=== PATIENT | male | born 1935 | race Caucasian/White ===

== ENCOUNTER 2019-03-14 12:16 | Inpatient (IN) | payer OTHER, MEDICARE ==
[2019-03-14] MEDS ORDERED: POLYETHYLENE GLYCOL 3350 17 GM PKT PO PRN (16:56)
[2019-03-14] MEDS ORDERED: SENNOSIDES 17.6 MG/10 ML UDL PO PRN (16:56)
[2019-03-14] MEDS ORDERED: ACETAMINOPHEN 325 MG TAB PO PRN (16:56)
[2019-03-14] MEDS ORDERED: HALOPERIDOL 2 MG/1 ML PO PRN (17:03)
--- NOTE | 2019-03-14 18:10 | GHP ---
[f rep st] HISTORY AND PHYSICAL DATE OF ADMISSION: 03/14/2019 TIME OF EVALUATION: 1530. REFERRING FACILITY: [facility]. IMPAIRMENT GROUP: 1.2 right body involvement (left brain). DATE OF ONSET: 03/10/2019. 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 ETIOLOGIC DIAGNOSIS: Cerebrovascular accident. DATE OF SURGERY: None. HISTORY OF PRESENT ILLNESS: 80-old male who was admitted to [facility] on 03/10/2019, with right-sided weakness and altered mental status. He was not considered a tPA candidate because he was outside the window for therapy. CT scan of the head as well as CT scan angiography of the head and neck were unremarkable aside from possible chronic appearing pulmonary emboli. He was given ASA in the emergency department. His NIHSS in the ED was noted to be 19. Workup was consistent with acute ischemic lacunar CVA with dense right hemiparesis, aphasia, dysarthria, and gaze deviation. CT pulmonary arteriogram showed pulmonary arteries dilated consistent with pulmonary hypertension. 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 Due to the small nature of the pulmonary embolus and high risk for fall/bleeding due to severe hemiparesis , it was recommended that he avoid full anticoagulation. He was felt to be medically stable and was, therefore, transferred to [facility], rehabilitation unit for comprehensive rehabilitation to include care home, 24 hour medical management, physical, occupational, and speech therapy. STUDIES AND LABS DURING HIS STAY: On admission, he was noted to have an anion gap of 14, BUN 18, calcium 9.4, chloride 103, creatinine 0.92, GFR 77.2, sodium 136, potassium 3.8. MAGING STUDIES: Included CT of the brain, which showed ventricles, sulci, and cisterns symmetric but mildly prominent compatible with age-related atrophy. Nonspecific mild patchy periventricular and subcortical white matter low density, likely reflections of chronic small-vessel disease. No CT evidence of acute infarction. No evidence of acute intracranial hemorrhage. No intracranial mass. CT pulmonary arteriogram showed small segmental pulmonary embolism in the apical left upper lobe pulmonary artery measures approximately 3 mm in diameter. Possible clot near the origin of the apical right upper lobe pulmonary artery. This was read as an addendum to the initial CT arteriogram. Transesophageal echo showed moderate concentric left ventricular hypertrophy with low-normal systolic function. Ejection fraction 50% with no gross regional wall motion abnormalities, grade 2 diastolic dysfunction. Grossly normal estimated pulmonary pressures. Leg duplex venous Doppler studies performed 03/10/2019, showed no evidence of DVT. MRI of the brain without contrast showed a linear area of acute/subacute infarction involving the posterior fibers left posterior internal capsule extending into the periatrial white matter. Age-appropriate cerebral atrophy. Moderate chronic small vessel ischemic changes. PRECAUTIONS: Fall risk. Aspiration precautions. ACTIVE COMORBIDITIES: Dysphagia. PAST MEDICAL HISTORY: Coronary artery disease. Dementia. Hyperlipidemia. Cardiac murmur. Sleep apnea. Thrombocytopenia. PAST SURGICAL HISTORY: Coronary artery bypass grafting. MEDICATIONS: Pre-hospital medications: Amlodipine 5 mg nightly. Cholecalciferol, vitamin D 1 daily. Isosorbide mononitrate 30 mg 24-hour tablet nightly. Admission medications, final med list pending per Pharmacy reconciliation. By medical record review: ASA EC 81 mg. Atorvastatin 40 mg. Plavix 75 mg. Zyprexa 5 mg. Amlodipine 5 mg. Lovenox 40 mg subcu. Tylenol. ALLERGIES: No known drug allergies. PSYCHOSOCIAL HISTORY: He lives in [place] independent living with , whom he cares for. Nonsmoker. Further social history will be obtained once his son arrives to [facility]. FAMILY HISTORY: Noncontributory. REVIEW OF SYSTEMS: Unobtainable by patient history secondary to aphasia. He does, however, answer yes or no. HEENT: Decreased visual nuñez on the right. CARDIAC: Denies chest pain. RESPIRATORY: Denies shortness of breath. GI: Reports lower abdominal pain with palpation. : Reports suprapubic pain with palpation. NEUROLOGICAL: He reports he is unable to move his right arm or leg. The remainder of the 10 system review was negative. PHYSICAL EXAMINATION: VITALS: Blood pressure 126/67, pulse 60, respirations 18 , O2 saturation 93. CONSTITUTION: Pleasant elderly male, lying in bed. Aphasic. Right shoulder sling in place. HEENT: EOMI intact. Pupils equal, round, reactive to light. Decreased tracking across the right lateral visual nuñez. Oral mucosa are moist. Good dentition. CARDIOVASCULAR: Regular rate and rhythm. Did not appreciate a systolic ejection murmur. No lower extremity edema. LUNGS: Upper airway rhonchi noted, secondary to patient unable to clear secretions. ABDOMEN: Soft, nontender, normoactive bowel sounds all 4 quadrants. No rebound, guarding, or tenderness. No masses. : Condom catheter in place. Mild suprapubic tenderness noted. EXTREMITIES: Warm all 4 extremities. No peripheral edema noted. NEUROLOGIC: Expressive aphasia. Cranial nerves 2 through 12 grossly intact. Motor exam reveals a dense right hemiplegia. 4/5 proximal and distal muscle groups left upper and left lower extremities. Patient reports normal sensation in both upper and lower extremities. Normal tone right biceps, internal and external shoulder rotators , normal tone right hip flexors. There is heel cord tightness noted bilaterally. MUSCULOSKELETAL: Right shoulder sling in place. Passive internal and external shoulder rotation with the elbow flexed at side 90 degrees is within normal limits. No palpable right shoulder subluxation. CURRENT LEVEL OF FUNCTION: Per the pre-admission screen: Diet mechanical, soft , setup/SPA feeding. Grooming, minimal assist. Bathing not tested. Lower body dressing, total assistance. Toileting not testing. Bladder not tested. Bowel not tested. Bed mobility, moderate assist to roll, max assist x2 supine. Toilet transfers, moderate assist x2. Sit to stand, bed to chair, max assist x2. Sera steady balance, sitting balance, min assist x2, endurance fair. Gait , wheelchair, stairs not tested. Communication expressive aphasia. Has receptive aphasia, but some perseverance. Cognition impaired. Attention, STM deficits. Safety precautions, fall risk, impaired right upper extremity sensation. Upper extremity strength/range of motion. Right upper and right lower extremity hemiparesis. On today's exam, there is no significant change from preadmission screen. IMPRESSION: This is an 80-year-old male who now presents with dense right hemiparesis secondary to a recent left cerebrovascular accident. Unfortunately , he presented to the emergency department outside the window of tPA, and therefore, this was not administered. Workup prior to admission to our facility indicated that he had chronic pulmonary embolus; however, did not have acute lower extremity deep venous thrombosis. He was placed on deep venous thrombosis prophylaxis, including Plavix, enteric-coated aspirin, and Lovenox 40. Due to his age and level of debility, he is considered high risk for deep venous thrombosis. He has expressive aphasia and will currently be placed on a level 2 diet. Swallowing precautions. Upon admission to the rehab unit, he will need integrated rehabilitation, which will include physical and occupational therapy, as well as speech and language pathology. He will have a swallowing evaluation over the weekend. PLAN: 1. Left CVA with right dense hemiplegia: Consult Physical and Occupational Therapy for lower extremity strengthening, gait evaluation, and upper extremity strengthening, respectively. Occupational therapy for ADL training with assistive devices. Integrated PT and OT for bed mobility and gait training as deemed necessary. Occupational therapy to perform formal visual field testing. Speech and Language Pathology consult. Patient will be placed on a level 2 dysphagia diet. 2. Coronary artery disease: Review of medical records indicates permissive hypertension. Patient now on enteric-coated ASA as well as Plavix. 3. Hypertension: Current antihypertensives include amlodipine 5 mg. Review of discharge medical records indicates that Norvasc was being held for permissive hypertension. Patient also has a history of having bradycardia, as low as 45, possibly felt secondary to Zyprexa and Haldol. 4. Hyperlipidemia: Continue atorvastatin. Will place on a low-fat diet. 5. Dementia: Chronic underlying dementia. Will discuss with family if patient is currently at baseline regarding this. Patient was noted to have sundowning and delirium overnight and was started on Zyprexa and Haldol. Will place order for these medications to be given on a p.r.n. basis. 6. Pulmonary embolism: This was felt to be chronic. Lower extremity duplex ultrasound studies were negative for DVTs. Will continue enteric-coated ASA, Plavix, and Lovenox 40. 7. Obstructive sleep apnea: Patient to use CPAP at night. Will monitor O2 saturations at night. /[id number]/MODL MTDD
[2019-03-14] MEDS: ATORVASTATIN CALCIUM 40 MG TAB PO SCH (18:48)
[2019-03-14] MEDS: OLANZapine DISINTEGR 5 MG TAB PO SCH (20:43)
[2019-03-15 05:44] LABS: PLATELET COUNT 163 10^3/uL (150-400)
[2019-03-15] MEDS: ENOXAPARIN 40 MG/0.4 ML SYR SC SCH (08:14)
--- NOTE | 2019-03-15 09:17 | PDOREHIP ---
Admission [facility] - Admission - 3 Day Assessment Period Admission Date/Day 1: 03/14/19 Day 2: 03/15/19 Day 3: 03/16/19 - Active Diagnoses Comorbidities and Co-existing Conditions at Admission: 08739. None of the Above - Skin Conditions # Stage 1 Pressure Ulcers-Admission: 0 # Stage 2 Pressure Ulcers-Admission: 0 # Stage 3 Pressure Ulcers-Admission: 0 # Stage 4 Pressure Ulcers-Admission: 0 # Unstageable Pressure Ulcers (Non-remove Dress)-Admission: 0 # Unstageable Pressure Ulcers (Slough/Eschar)-Admission: 0
--- NOTE | 2019-03-15 09:22 | SOAPPROG ---
SOAP Progress Note Assessment/Plan: Assessment: PLAN: 1. Left CVA with right dense hemiplegia: Consult Physical and Occupational Therapy for lower extremity strengthening, gait evaluation, and upper extremity strengthening, respectively. Occupational therapy for ADL training with assistive devices. Integrated PT and OT for bed mobility and gait training as deemed necessary. Occupational therapy to perform formal visual field testing. Speech and Language Pathology consult. Patient will be placed on a level 2 dysphagia diet. 2. Coronary artery disease: Review of medical records indicates permissive hypertension. Patient now on enteric-coated ASA as well as Plavix. 3. Hypertension: Blood pressure 03/15 132/78. Current antihypertensives include amlodipine 5 mg. Review of discharge medical records indicates that Norvasc was being held for permissive hypertension. Patient also has a history of having bradycardia, as low as 45, possibly felt secondary to Zyprexa and Haldol which he did not receive last night. 4. Hyperlipidemia: Continue atorvastatin. Will place on a low-fat diet. 5. Dementia: Chronic underlying dementia. Will discuss with family if patient is currently at baseline regarding this. Patient was noted to have sundowning and delirium overnight and was started on Zyprexa and Haldol. Will place order for these medications to be given on a p.r.n. basis. 6. Pulmonary embolism: This was felt to be chronic. Lower extremity duplex ultrasound studies were negative for DVTs. Will continue enteric-coated ASA, Plavix, and Lovenox 40. 7. Obstructive sleep apnea: Patient to use CPAP at night. Will monitor O2 saturations at night. 8. Labs: UA from admission was negative. Hemoglobin and hematocrit 15.1/44.3. White blood count 6.63. Sodium 137, potassium 4.0 also from admission. 9. Tightness of hand intrinsics. Will ask Occupational therapy to perform intrinsic stretching. 10. Heel cord tightness-will ask Occupational therapy to perform daily heel cord stretching. 03/15/19 09:19 Subjective: No complaints per patient. He is more talkative today. No problems reported by nursing. He slept well. He did not require Haldol or Zyprexa. Objective: Vital Signs Temp Pulse Resp BP Pulse Ox 36.7 C 62 18 132/78 H 90 L 03/14/19 20:42 03/15/19 04:49 03/14/19 20:42 03/15/19 04:49 03/15/19 04:49 Laboratory Results 03/15/19 05:10 03/15/19 05:10 03/14/19 03/15/19 03/16/19 05:59 05:59 05:59 Output Total 350 Balance -350 Physical Exam - Physical Exam General Appearance: WD/WN, alert, no apparent distress EENT: PERRL/EOMI, other (Halitosis) Respiratory: lungs clear, normal breath sounds Abdomen: normal bowel sounds, non-tender, soft Skin: normal color, warm/dry, No decubitus Extremities: other (Right shoulder sling in place), No swelling, No Mike's sign Neuro/Psych: alert, motor weakness (Dense right hemiplegia. Increased tone of the right hand intrinsics. Heel cord tightness noted bilaterally.), speech abnormalities ICD10 Worksheet Patient Problems: Problems Problem Status Onset CVA (cerebral vascular accident) Acute - ICD10 Problem Qualifiers (1) CVA (cerebral vascular accident) Qualifiers: CVA mechanism: occlusion Laterality of affected vessel: left
[2019-03-15] MEDS: CLOPIDOGREL BISULFATE 75 MG TAB PO SCH (10:04)
[2019-03-15] MEDS ORDERED: MAGNESIUM HYDROXIDE 30 ML UDCUP PO PRN (14:18)
[2019-03-15] MEDS: ATORVASTATIN CALCIUM 40 MG TAB PO SCH (17:33)
[2019-03-15] MEDS: OLANZapine DISINTEGR 5 MG TAB PO SCH (20:25)
[2019-03-16] MEDS: ENOXAPARIN 40 MG/0.4 ML SYR SC SCH (07:34)
[2019-03-16] MEDS: CLOPIDOGREL BISULFATE 75 MG TAB PO SCH (10:00)
--- NOTE | 2019-03-16 10:05 | SOAPPROG ---
SOAP Progress Note Assessment/Plan: Assessment: PLAN: 1. Left CVA with right dense hemiplegia: NO CHANGE IN RIGHT UPPER RIGHT LOWER EXTREMITY MOTOR EXAM. PATIENT LESS APHASIC ON 03/16 AND 03/15 COMPARED TO INITIAL EXAM ON H&P. FOLLOWS SOME COMMANDS. Consult Physical and Occupational Therapy for lower extremity strengthening, gait evaluation, and upper extremity strengthening, respectively. Occupational therapy for ADL training with assistive devices. Integrated PT and OT for bed mobility and gait training as deemed necessary. Occupational therapy to perform formal visual field testing. Speech and Language Pathology consult. Patient will be placed on a level 2 dysphagia diet. 2. Coronary artery disease: Patient now on enteric-coated ASA as well as Plavix. 3. Hypertension: Blood pressure 03/16 132/67. PULSE 63 HAD REGULAR Review of medical records indicates permissive hypertension. Current antihypertensives include amlodipine 5 mg. Review of discharge medical records indicates that Norvasc was being held for permissive hypertension. Patient also has a history of having bradycardia, as low as 45, possibly felt secondary to Zyprexa and Haldol. 4. Hyperlipidemia: Continue atorvastatin. Will place on a low-fat diet. 5. Dementia: Chronic underlying dementia. Will discuss with family if patient is currently at baseline regarding this. Patient was noted to have sundowning and delirium overnight and was started on Zyprexa AT BEDTIME AND HALDOL P.R.N.. NURSING REPORTS PATIENT SEEMS TO SEDATED ON ZYPREXA AND THEREFORE WILL CHANGE THIS TO P.R.N.. 6. Pulmonary embolism: This was felt to be chronic. Lower extremity duplex ultrasound studies were negative for DVTs. Will continue enteric-coated ASA, Plavix, and Lovenox 40. 7. Obstructive sleep apnea: Patient to use CPAP at night. Will monitor O2 saturations at night. 8. Labs: UA from admission was negative. Hemoglobin and hematocrit 15.1/44.3. White blood count 6.63. Sodium 137, potassium 4.0 also from admission. 9. Tightness of hand intrinsics. Will ask Occupational therapy to perform intrinsic stretching. 10. Heel cord tightness-will ask Occupational therapy to perform daily heel cord stretching. 03/16/19 10:06 Subjective: NO COMPLAINTS PER PATIENT. NURSING REPORTS STRAIGHT CATHETERIZATION X2 YESTERDAY WITH VOLUMES OF 825. NURSING ALSO REPORTS PATIENT IS QUITE SEDATED AT NIGHT AND SLEPT THROUGH STRAIGHT CATHETERIZATION. THEREFORE REQUESTING ZYPREXA TO BE CHANGED TO P.R.N. Objective: Vital Signs Temp Pulse Resp BP Pulse Ox 36.6 C 63 16 132/67 H 92 03/16/19 05:45 03/16/19 05:45 03/16/19 00:07 03/16/19 05:45 03/16/19 05:45 Laboratory Results 03/15/19 05:10 03/15/19 05:10 03/15/19 03/16/19 03/17/19 05:59 05:59 05:59 Intake Total 940 60 Output Total 2049 Balance -1110 60 Physical Exam - Physical Exam General Appearance: WD/WN, alert, no apparent distress, other (MORE TALKATIVE TODAY. ANSWERS QUESTIONS APPROPRIATELY. FOLLOWS COMMANDS.) Respiratory: lungs clear, normal breath sounds Cardiac/Chest: No edema, No JVD Abdomen: non-tender, soft, other (NO SUPRAPUBIC TENDERNESS) Skin: normal color, warm/dry Neuro/Psych: alert, motor weakness, sensory deficit (DENSE RIGHT HEMIPLEGIA. NO RIGHT UPPER EXTREMITY OR RIGHT LOWER EXTREMITY MOTOR RETURN ON TODAY'S EXAM COMPARED TO ADMISSION EXAM FROM 03/14) ICD10 Worksheet Patient Problems: Problems Problem Status Onset CVA (cerebral vascular accident) Acute - ICD10 Problem Qualifiers (1) CVA (cerebral vascular accident) Qualifiers: CVA mechanism: occlusion Laterality of affected vessel: left
[2019-03-16] MEDS ORDERED: TAMSULOSIN HCL 0.4 MG CAP PO SCH (10:15)
[2019-03-16] MEDS ORDERED: IOPAMIDOL (ISOVUE 370) 100 ML BTL IV ONE (10:35)
--- NOTE | 2019-03-16 11:06 | SOAPPROG ---
SOAP Progress Note Assessment/Plan: Assessment: PLAN: 1. Left CVA with right dense hemiplegia: NO CHANGE IN RIGHT UPPER RIGHT LOWER EXTREMITY MOTOR EXAM. PATIENT LESS APHASIC ON 03/16 AND 03/15 COMPARED TO INITIAL EXAM ON H&P. FOLLOWS SOME COMMANDS. Consult Physical and Occupational Therapy for lower extremity strengthening, gait evaluation, and upper extremity strengthening, respectively. Occupational therapy for ADL training with assistive devices. Integrated PT and OT for bed mobility and gait training as deemed necessary. Occupational therapy to perform formal visual field testing. Speech and Language Pathology consult. Patient will be placed on a level 2 dysphagia diet. 2. Coronary artery disease: Patient now on enteric-coated ASA as well as Plavix. 3. Hypertension: Blood pressure 03/16 132/67. PULSE 63 HAD REGULAR Review of medical records indicates permissive hypertension. Current antihypertensives include amlodipine 5 mg. Review of discharge medical records indicates that Norvasc was being held for permissive hypertension. Patient also has a history of having bradycardia, as low as 45, possibly felt secondary to Zyprexa and Haldol. 4. Hyperlipidemia: Continue atorvastatin. Will place on a low-fat diet. 5. Dementia: Chronic underlying dementia. Will discuss with family if patient is currently at baseline regarding this. Patient was noted to have sundowning and delirium overnight and was started on Zyprexa AT BEDTIME AND HALDOL P.R.N.. NURSING REPORTS PATIENT SEEMS TO SEDATED ON ZYPREXA AND THEREFORE WILL CHANGE THIS TO P.R.N.. 6. Pulmonary embolism: This was felt to be chronic. Lower extremity duplex ultrasound studies were negative for DVTs. Will continue enteric-coated ASA, Plavix, and Lovenox 40. 7. Obstructive sleep apnea: Patient to use CPAP at night. Will monitor O2 saturations at night. 8. Labs: UA from admission was negative. Hemoglobin and hematocrit 15.1/44.3. White blood count 6.63. Sodium 137, potassium 4.0 also from admission. 9. Tightness of hand intrinsics. Will ask Occupational therapy to perform intrinsic stretching. 10. Heel cord tightness-will ask Occupational therapy to perform daily heel cord stretching. 03/16/19 10:06 Subjective: Addendum to earlier progress note. Called by nursing staff at 10:35 a.m. Regarding change of neurological status of patient while he was in speech therapy. Apparently during speech therapy session patient slumped over in wheelchair and was noted to be initially unresponsive and then noted to have increased aphasia, not responding to verbal commands. Nursing reports blood pressure noted to be 60/30. Stroke alert was called and patient immediately assessed by stroke alert team. Blood pressure normalized and patient became more responsive. He was able to recite his name and follow verbal commands including raising left arm and left leg. Able to touch nose with left hand. By comparison to this morning's exam there is no obvious change in left upper or left lower extremity motor exam. Patient does have dense right hemiplegia secondary to previous cerebrovascular accident for which he was admitted to the rehab unit. Per stroke team protocol patient was sent for emergent head CT to rule out infarction verses new ischemic CVA followed by further assessment in the emergency department where will be determined if patient can return to rehab floor needs to be transferred to medical floor. This was discussed with the stroke alert team as well as the rehab nursing staff Objective: Vital Signs Temp Pulse Resp BP Pulse Ox 36.4 C 63 16 61/35 L 95 03/16/19 10:39 03/16/19 10:27 03/16/19 00:07 03/16/19 10:27 03/16/19 10:27 Laboratory Results 03/15/19 05:10 03/15/19 05:10 03/15/19 03/16/19 03/17/19 05:59 05:59 05:59 Intake Total 940 60 Output Total 2049 Balance -1110 60 ICD10 Worksheet Patient Problems: Problems Problem Status Onset CVA (cerebral vascular accident) Acute - ICD10 Problem Qualifiers (1) CVA (cerebral vascular accident) Qualifiers: CVA mechanism: occlusion Laterality of affected vessel: left
[2019-03-16 11:07] LABS: PLATELET COUNT 205 10^3/uL (150-400)
[2019-03-16 11:26] LABS: INR 1.07 (0.83-1.16); PROTIME(PATIENT) 13.5 SEC (12.0-15.0)
--- NOTE | 2019-03-16 11:36 | PDGENHP ---
History and Physical History and Physical: Critical care note > 45 mins critical care time As cultured bedside for a stroke alert in house on this patient who is on the rehab unit after being transferred here from a [facility] with a recent stroke. His stroke involved right-sided dense kenya paresis and expressive aphasia. This morning he was apparently sitting in a chair working with speech therapist when he suddenly became unresponsive and was found to have a blood pressure of 62/40. As I arrived at the room he was being placed back into his bed by the ceiling lift device. As he was placed back into the bed he was still poorly responsive but over the next minute or 2 became much more responsive and was speaking to us answering questions with mumbled speech but following commands and moving his left limbs. When we recheck his blood pressure in the bed it was back in normal range and he has a strong pulse in both feet which is at normal rate and regular. Notably there have been no fevers identified I am unable talking to the nursing staff and therapist to get a real clear picture on how strong his pulse was or how strong it felt during the episode. There is no time when he stops breathing at all. He did not have anything that looks like seizure. The episode was quite sudden in onset with no symptoms or examination changes in the time directly before the syncope. He had been seen previously by the rehabilitation unit rounding physician who said that his neuro examination was unchanged from yesterday. Blood pressures have been in good shape through the night and morning. The stroke occurred several days ago and he did not receive tPA due to timing. He came here receiving Plavix and low-dose Lovenox. He does not have any known atrial fibrillation. He does have a history of coronary disease and a bypass surgery. On review his medications I notice that he has orders for Seroquel 5 mg at bedtime and I am told that that was a new medications started at the [facility] during the initial stroke asked the sewed because of sundowning and agitation. He is not on antihypertensives or heart rate lowering medications. He is not diabetic and is not taking any hypoglycemic medicines. I do not know if he has any history of arrhythmia or syncope in the past at the moment. He is not on narcotics. On my initial examination as he was being transferred in the left his head was slumped to the right eyes closed any appeared unresponsive with pale skin. Subsequently as he got into the bed he was awake, skin warm and dry, following commands appropriately, still with right kenya paresis and mumbled speech but on my bili to understand his words. He does not appear to be having any type of respiratory difficulty at all in his lungs are clear. His heart is regular with quiet heart tones and no audible murmur. Limbs are without edema and are warm. Skin turgor is notably decreased. Abdomen soft nondistended nontender with bowel sounds. No audible bruit at the neck. Strength is normal in the left limbs and facial symmetry okay. Pupils are small and symmetric. I did not see any signs of bleeding or bruising. I examined the patient together in the room with Dr. Jasson Su of Neurology and Dr. Lino Pan. An I-STAT is done in the room in my presence and the main finding there is that the hemoglobin and hematocrit are remarkably elevated raising a question of possible dehydration. After observing him in the room for approximately 15 min and ensuring hemodynamic stability we transferred him to the CT scanner where we see a recent appearing ischemic stroke in the left basal ganglia, typical location for his presenting stroke symptoms. There is no hemorrhage or other acute abnormalities. I reviewed these images in detail with Dr. Hendrickson of radiology. At this time he is transferred to the ER as we are doing the CT scan and further assessment in the "outpatient" setting, and by my assessment he has made to the ER without any decompensation, still awake and responsive. I reviewed the patient's case in detail with Dr. Wayne Todd of the ER he will be further the assessing the patient at this time. On review of existing laboratory studies here notably the patient does have an elevated BUN with normal creatinine and electrolytes; the BUN is higher today than yesterday. Also as he arrived here his hemoglobin was at 15 on serum chemistry yesterday, up to 17 on chemistry this morning and 18 subsequently on the point of care testing in the patient's room. An INR was normal. ASSESSMENT: * Acute syncope resolved, involved hypotension, I am unable to ascertain what his cardiac rhythm or rate was with certainty during the event * Recent ischemic stroke with right kenya paresis and aphasia and typical CT findings is unchanged from his earlier baseline, no hemorrhage * I strongly suspect dehydration based on examination and blood test findings, and this makes sense given his recent stroke and dysphagia 2 diet * Recent institution of nightly Seroquel for sundowning with agitation started at the prior hospital, has received does over the last 4 nights (p.r.n. Haldol had also been ordered but he has not received any) * History of coronary bypass surgery, and history of murmur * History of dementia * Hyperlipidemia * Obstructive sleep apnea * History thrombocytopenia Overall my suspicion is that he had syncope probably triggered by combination of dehydration and new institution of Seroquel therapy. I think this is more of a hemodynamic episode. Additionally as he has sleep apnea he could potentially have pulmonary hypertension, which would make him less tolerant of these hemodynamic changes. However he does also have a history of heart disease and I would worry about the possibility of cardiac the affects of Seroquel. We do not have an EKG here yet but that is pending in the ER and I want to look at his QT syndrome. Certainly feel like it is reasonable to monitor her him on cardiac EKG monitoring going forward. I will discuss further with Dr. Salas after ER assessment.
[2019-03-16 11:55] VITALS: BP 121/66
[2019-03-16] MEDS ORDERED: OLANZapine DISINTEGR 5 MG TAB PO SCH (21:00)
== END 2019-03-16 12:05 | disposition short-term general hospital (02) | DRG 57 ==
LOC: F3E 15:00
PROVIDERS: ADMIT Internal Medicine Hospice and Palliative Medicine; ATTEND Internal Medicine Hospice and Palliative Medicine
DX: I69.351 Hemiplegia and hemiparesis following cerebral infarction affecting right dominant side (principal); I69.320 Aphasia following cerebral infarction; I69.322 Dysarthria following cerebral infarction; I27.82 Chronic pulmonary embolism; R55 Syncope and collapse; I27.20 Pulmonary hypertension, unspecified; F03.90 Unspecified dementia, unspecified severity, without behavioral disturbance, psychotic disturbance, mood disturbance, and anxiety; E78.5 Hyperlipidemia, unspecified; G47.33 Obstructive sleep apnea (adult) (pediatric); R01.1 Cardiac murmur, unspecified; I25.10 Atherosclerotic heart disease of native coronary artery without angina pectoris; I10 Essential (primary) hypertension; Z95.1 Presence of aortocoronary bypass graft
CPT/HCPCS: 82435-PO; 82565-PO; 82947-PO; 84132-PO; 84295-PO; 84520-PO; 85014-ER; 92507-GN; 92523-GN; 92610-GN; 97162-GP; 97167-GO; 97530-GP; 97535-GO; J1650; Q9967

== ENCOUNTER 2019-03-16 10:59 | Inpatient (IN) | payer OTHER, MEDICARE ==
[2019-03-16] MEDS ORDERED: NS 500 ML IV ONE ×2 (11:02→14:13)
--- NOTE | 2019-03-16 11:02 | EDPHY ---
H & P Time Seen by Provider: 03/16/19 11:01 HPI/ROS: CHIEF COMPLAINT: Syncope HISTORY OF PRESENT ILLNESS: Recent dense CVA with right kenya paresis was called as a stroke alert on the floor for brief episode of unconsciousness and low blood pressure at 60 systolic. He had been admitted 2 days ago from [facility] following a stroke. Apparently pulses unable to be definitively determined. Head CT which per report from Dr. Thomson shows known stroke only, transferred here for further evaluation. On arrival the patient does not know what happened. He says he remembers sitting up in the wheelchair with the therapist and then the next thing he remembers he was awake. He did not remember passing out. He did not have a prodrome. He denies having lightheadedness or dizziness or chills or chest pain or shortness of breath. REVIEW OF SYSTEMS: Eye: no change in vision ENT: no sore throat Cardiac: HPI Pulmonary: no cough or SOB Abdomen: no vomiting, diarrhea, abdominal pain Musculoskeletal: no back pain Skin: no rash Neuro: no headache, right kenya paresis Constitutional: no fever : no urinary symptoms A comprehensive 10 point review of systems is otherwise negative aside from elements mentioned in the history of present illness. PAST MEDICAL HISTORY: Rehab admission H&P dated 03/14/19 personally reviewed, includes coronary disease and hyperlipidemia and coronary artery bypass grafting , pulmonary embolism diagnosed in previous hospitalization which was felt to be chronic. Social history: Currently on rehab floor General Appearance: Alert and conversant, cooperative. Eyes: No scleral icterus. ENT, Mouth: Dry mucous membranes. Respiratory: Normal respiratory effort, breath sounds equal, lungs are clear to auscultation. Cardiovascular: Regular rate and rhythm. Gastrointestinal: Abdomen is soft and non tender. Neurological: Alert, right kenya paresis. Speech is slurred. Does answer questions, can name eyeglasses and a pen. Skin: Warm and dry, no rashes. Musculoskeletal: Some bilateral peripheral edema. Psychiatric: Not agitated. Emergency Department course/MDM: Labs from today at 10:45 a.m. Include potassium 4.2, BUN 30, creatinine 1.2, glucose 104, hemoglobin 18, hematocrit 51. Patient specifically denies chest pain or shortness of breath and is not hypoxic with 97% saturation on room air and heart rate of 64. Syncope without prodrome is concerning for ventricular malignant dysrhythmia. Neurologic exam appears to be at his baseline after a stroke, I think his event today was much more likely to be syncope and not a new stroke. Troponin pending, hospitalist consult for overnight telemetry monitoring and then consideration for admission to rehab again. IV fluids given with dry mucous membranes and elevated hematocrit suggesting possibility of dehydration. Smoking Status: Never smoked Constitutional: Initial Vital Signs Temperature (C) 36.3 C 03/16/19 11:12 Heart Rate 63 03/16/19 11:12 Respiratory Rate 16 03/16/19 11:12 Blood Pressure 147/77 H 03/16/19 11:12 O2 Sat (%) 97 03/16/19 11:12 Allergies/Adverse Reactions: No Known Allergies Allergy (Unverified 03/14/19 15:49) Home Medications: Medication Instructions Recorded Acetaminophen [Tylenol 325mg (*)] 650 mg PO Q4 PRN 03/14/19 Atorvastatin Calcium [Lipitor 40 40 mg PO DAILY@1800 03/14/19 mg (*)] Clopidogrel Bisulfate [Clopidogrel] 75 mg PO DAILY 03/14/19 Enoxaparin [Lovenox 40 MG (*)] 40 mg SQ DAILY@1600 03/14/19 OLANZapine [Olanzapine Odt] 5 mg PO HS 03/14/19 Haloperidol Lactate [HALOPERIDOL 0.5 mg PO Q6 PRN 03/16/19 LACTATE] Magnesium Hydroxide [Milk of 30 ml PO DAILY PRN 03/16/19 Magnesia] Polyethylene Glycol 3350 [Miralax 17 gm PO DAILY PRN 03/16/19 17 gm (*)] Sennosides [Senna] 8.8 mg PO BID PRN 03/16/19 Tamsulosin HCl [Flomax 0.4 MG (*)] 0.4 mg PO DAILY 03/16/19 Medical Decision Making - Diagnostics EKG Interpretation: 12-lead EKG interpreted by me; official reading is in computer system. My interpretation is sinus rhythm no with right bundle branch block and left anterior fascicular block Differential Diagnosis: Differential diagnosis considered for syncope including but not limited to vasovagal syncope, arrhythmia, dehydration, and blood loss. Consult/Admit Bed Type: [facility] 1132am for Jennifer Thomson to consult cards 1201 - Data Points Medications Given: Discontinued Medications Sodium Chloride (Ns) 500 mls @ 1,000 mls/hr IV EDNOW ONE PRN Reason: Protocol Stop: 03/16/19 11:31 Last Admin: 03/16/19 11:14 Dose: 500 mls Departure - Departure Dis[facility] Clinical Impression: Syncope Qualifiers: Syncope type: unspecified Qualified Code(s): R55 - Syncope and collapse Condition: Good
--- NOTE | 2019-03-16 11:23 | CPEKG ---
Test Reason : OPEN Blood Pressure : / mmHG Vent. Rate : 064 BPM Atrial Rate : 064 BPM P-R Int : 193 ms QRS Dur : 126 ms QT Int : 470 ms P-R-T Axes : 048 -70 095 degrees QTc Int : 485 ms Normal sinus rhythm RBBB and LAFB Probable left ventricular hypertrophy Nonspecific T abnormalities, lateral leads Confirmed by Wayne Salas ([id number]) on 03/16/2019 11:22:50 AM Referred By: Wayne Salas Confirmed By:Wayne Salas
[2019-03-16] MEDS ORDERED: ACETAMINOPHEN 325 MG TAB PO PRN (13:21)
[2019-03-16] MEDS ORDERED: ONDANSETRON 4 MG/2 ML VIAL IVP PRN (13:21)
--- NOTE | 2019-03-16 13:23 | GCON ---
[f rep st] CONSULTATION NEUROLOGIC CONSULTATION REFERRING PHYSICIAN: Lino Pan MD I saw this patient through a Stroke Alert system. HISTORY: This patient is an 83-year-old gentleman who is on the rehab service. He has a history of experiencing recent stroke where he did not get tPA at an outside facility. He came to the hospital on Plavix and low-dose Lovenox. No known rhythm disturbances. History of coronary disease and bypas s. He was at [facility], and apparently had some agitation leading to use of Seroquel. He was sitting t his morning doing therapy in the chair when he became unresponsive and had a profound drop in blood p ressure to 62/40. He gradually started to improve over the next several minutes, and started to spea k and answer questions and follow commands with dysarthria, and was moving his left side, and seemed to be rapidly back to his baseline. There was not specific documentation of an arrest of respiration s or his cardiac status with the low blood pressure. This is a significant change from his baseline. Stroke Alert was followed, with head CT showing the left posterior limb of the internal capsule infar ct and very clean blood vessels on CT angiogram of the head and neck. He has subsequently been admitted for monitoring prior to anticipated return to rehab, but it is not suspected that he had a new stroke. IMPRESSION: Overall, I agree with Dr. Thomson that this is probably a syncopal event rather than a tr ansient ischemia attack or new stroke. He did have recent stroke probably on a small-vessel basis ba sed on the fact that the large vessels look quite impressively clear. There is reported history of d ementia as well, and medical problems include apnea, thrombocytopenia, hyperlipidemia. His NIH Stroke Scale is 11. Total unit time of 75 minutes. Neurology will not follow up unless further questions arise, but we a re available through repeat consultation or any questions. Tomorrow, Dr. Hanna will be assuming Neuro logy service. /[id number]/MODL
--- NOTE | 2019-03-16 13:42 | PDGENHP ---
History and Physical History and Physical: CC: HISTORY: I was originally called to bedside for a stroke alert in house on this patient who was on the rehab unit after being transferred here from a [facility] with a recent stroke. His stroke involved right-sided dense kenya paresis and expressive aphasia. This morning he was apparently sitting in a chair working with speech therapist when he suddenly became unresponsive and was found to have a blood pressure of 62/40. As I arrived at the room he was being placed back into his bed by the ceiling lift device. As he was placed back into the bed he was still poorly responsive but over the next minute or 2 became much more responsive and was speaking to us answering questions with mumbled speech but following commands and moving his left limbs. When we recheck his blood pressure in the bed it was back in normal range and he has a strong pulse in both feet which is at normal rate and regular. Notably there have been no fevers identified I am unable talking to the nursing staff and therapist to get a real clear picture on how strong his pulse was or how strong it felt during the episode. There is no time when he stops breathing at all. He did not have anything that looks like seizure. The episode was quite sudden in onset with no symptoms or examination changes in the time directly before the syncope. He had been seen previously by the rehabilitation unit rounding physician who said that his neuro examination was unchanged from yesterday. Blood pressures have been in good shape through the night and morning. The stroke occurred several days ago and he did not receive tPA due to timing. He came here receiving Plavix and low-dose Lovenox. He does not have any known atrial fibrillation. He does have a history of coronary disease and a bypass surgery. On review his medications I notice that he has orders for Seroquel 5 mg at bedtime and I am told that that was a new medications started at the [facility] during the initial stroke asked the sewed because of sundowning and agitation. He is not on antihypertensives or heart rate lowering medications. He is not diabetic and is not taking any hypoglycemic medicines. I do not know if he has any history of arrhythmia or syncope in the past at the moment. He is not on narcotics. On my initial examination as he was being transferred in the left his head was slumped to the right eyes closed any appeared unresponsive with pale skin. Subsequently as he got into the bed he was awake, skin warm and dry, following commands appropriately, still with right kenya paresis and mumbled speech but on my bili to understand his words. He does not appear to be having any type of respiratory difficulty at all in his lungs are clear. His heart is regular with quiet heart tones and no audible murmur. Limbs are without edema and are warm. Skin turgor is notably decreased. Abdomen soft nondistended nontender with bowel sounds. No audible bruit at the neck. Strength is normal in the left limbs and facial symmetry okay. Pupils are small and symmetric. I did not see any signs of bleeding or bruising. I examined the patient together in the room with Dr. Jasson Su of Neurology and Dr. Lino Pan. An I-STAT is done in the room in my presence and the main finding there is that the hemoglobin and hematocrit are remarkably elevated raising a question of possible dehydration. After observing him in the room for approximately 15 min and ensuring hemodynamic stability we transferred him to the CT scanner where we see a recent appearing ischemic stroke in the left basal ganglia, typical location for his presenting stroke symptoms. There is no hemorrhage or other acute abnormalities. I reviewed these images in detail with Dr. Hendrickson of radiology. The patient was transferred from rehab unit to the CT scanner where CT showed evidence of an ischemic stroke recent in the left basal ganglia but no bleed or other acute changes. CT angio was unrevealing the patient was then transferred to the emergency room for further assessment and is now admitted from the ER to the PCU. 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 MEDICATIONS: The patients list has been reconciled by our clinical pharmacist in the EMR. I have reviewed the list and ordered appropriate medicines. PHYSICAL EXAMINATION: Vital Signs: I refer the reader to history above for acute changes in vitals earlier today. More recently since transfer to PCU he has become tachypneic and has a low oxygen saturation. Blood pressure and pulse remains stable Harness Fitter: Sinus rhythm Examination: General: alert, oriented, good mentation, relaxed Skin: Poor turgor, warm, dry, HEENT: normal Neck: no mass or jvd Resps: relaxed Lungs: clear breath sounds Heart: regular, no murmur Abdomen: soft, nondistended, nontender, +BS, no mass Upper Extremities: normal Lower Extremities: no edema, warm No Bleeding or bruising Neurologic: Speech is slurred and mumbled but he is able to articulate well enough to understand, normal wholesale representative, paralyzed in the right arm and leg IV site: looks normal LABORATORY DATA: Initial hemoglobin here yesterday 15 had increased to 17 by this morning and then set 18 by point of care test at the time of his acute event CBC otherwise normal midline Normal INR BUN has increased to low 30s with stable creatinine and electrolytes, minimal elevation of sugars Troponin indeterminate at 0.06 RADIOLOGY STUDIES: I reviewed head CT images in detail today and there is evidence of his recent ischemic stroke left basal ganglia but no bleed or other acute changes at this time 12 LEAD EKG: I reviewed 12 lead tracing from ER, Sinus rhythm. Severe baseline artifact renders interpretation of some aspects of this EKG difficult. There is right bundle branch block and left anterior fascicular block. There is no definite ischemia or injury. ASSESSMENT: * Acute syncope resolved, involved hypotension, I am unable to ascertain what his cardiac rhythm or rate was with certainty during the event * Recent ischemic stroke with right kenya paresis and aphasia and typical CT findings is unchanged from his earlier baseline, no hemorrhage * I strongly suspect dehydration based on examination and blood test findings, and this makes sense given his recent stroke and dysphagia 2 diet * Recent institution of nightly Seroquel for with agitation started at the prior hospital, has received does over the last 4 nights (p.r.n. Haldol had also been ordered but he has not received any) * Indeterminate troponin today * History of coronary bypass surgery, and history of murmur * History of dementia * Hyperlipidemia * Obstructive sleep apnea * History thrombocytopenia Overall my suspicion is that he had syncope probably triggered by combination of dehydration and new institution of Seroquel therapy. I think this is more of a hemodynamic episode. Additionally as he has sleep apnea he could potentially have pulmonary hypertension, which would make him less tolerant of these hemodynamic changes. However he does also have a history of heart disease and I would worry about the possibility of cardiac the affects of Seroquel. Also he has an indeterminate troponin though no definite ischemic change on 1st EKG and no angina symptoms. The troponin could be due to the hypotension he had during his spell or could indicate an acute heart syndrome. Another possibility to consider would be pulmonary embolism. PLANS: * Observation on potline monitor unit * IV hydration * CT angio of chest after some IV hydration in order to assess for PE while protecting kidneys as he has just had a CT angio head neck * Repeat troponins and EKGs today * Discontinue neuroleptics * Follow closely for any arrhythmia or signs of ischemia or heart failure * Check orthostatic vitals in a.m. * Continue routine post stroke care including anti-platelet therapy, DVT prophylaxis, blood pressure management, statin, OT PT and ASSOCIATE PROFESSOR OF EDUCATION * Continue dysphagia 2 diet at present * A do not resuscitate order had been in defect while on the rehabilitation unit and will continue that here for the time being, review with patient and family is able I have reviewed the patient's case in detail with Dr. Jasson Su and Wayne Salas I have reviewed the patient's past medical records as part of this assessment, including previous records from his stay on the rehabilitation unit
[2019-03-16] MEDS ORDERED: SENNOSIDES 17.6 MG/10 ML UDL PO PRN (13:48)
[2019-03-16] MEDS ORDERED: MAGNESIUM HYDROXIDE 30 ML UDCUP PO PRN (13:48)
[2019-03-16] MEDS ORDERED: POLYETHYLENE GLYCOL 3350 17 GM PKT PO PRN (13:48)
[2019-03-16] MEDS: NS 1,000 ML IV SCH ×2 (15:01→23:04)
--- NOTE | 2019-03-16 15:02 | ASMTCMCOM ---
CM Note CM Note Notes: Pt was admitted on [facility] in [place] [facility] when a Stroke Alert was called due to pt becoming unresponsive and hypotensive while he was working with FITNESS SERVICES MANAGER this morning. Pt brought down to the ED, evaluated and admitted tp PCU for possible syncope and telemonitoring and further workup. Pt came to [facility] on 03/14 from [facility] after he had a left CVA about a week ago. Pt's PMH also includes: dementia, CAD, CABG, SOFIA, HLD, thrombocytopenia Prior to his stroke, the pt lived in [facility] with his , Francine, who helps care for him; pt reportedly also has a cargiver in addition to his 's assistance. Pt's son Sam also arrived to the ED. PT/OT/FITNESS SERVICES MANAGER ordered. Anticipate pt to hopefully return to Inpt Rehab? CM to follow. Date Signed: 03/16/2019 03:01 PM Electronically Signed By:Gabrielle Kennedy RN
[2019-03-16] MEDS: ENOXAPARIN 40 MG/0.4 ML SYR SC SCH (16:11)
[2019-03-16] MEDS: ATORVASTATIN CALCIUM 40 MG TAB PO SCH (18:09)
--- NOTE | 2019-03-16 20:19 | GCON ---
[f rep st] CONSULTATION CARDIOLOGY CONSULTATION INDICATION FOR CARDIOLOGY CONSULTATION: Syncopal event, with known history of CAD. REQUESTING PHYSICIAN: Dr. Kemp of Emergency Department Services HISTORY OF PRESENT ILLNESS: The patient is an 83-year-old male with known history of CAD with previous CABG and previous PCI, paroxysmal atrial fibrillation, SOFIA, hyperlipidemia, mild dementia. He recently suffered from a CVA, in which study showed to be from acute ischemic lacunar area. This did cause right-sided hemiparesis, aphasia, dysarthria, and gaze deviation. He initially had his workup done at [facility] and has recently been admitted to rehab hospital at [facility]. Today, the patient and family report he was working with OT, sitting in a chair, and suddenly became unresponsive. Nurse was notified and was noted to have a significantly low blood pressure of 62/40. He was placed on his back, and still poorly responsive, but over the next few minutes, became more responsive with asking questions, normal speech. Due to this, he was transported to the emergency department for further evaluation. Upon arrival, electrocardiogram was done, which noted sinus rhythm with right bundle branch block and left anterior fascicular block (bifascicular block), with nonspecific T-wave abnormalities in lateral leads. Patient reporting no chest pain, pressure or symptoms of ischemia. Laboratory studies drawn noting indeterminate troponin level at 0.063. He has been transferred up to the PCU for further evaluation. Upon my examination today, the patient denies of any palpitations or lightheadedness, or any symptoms suggesting that he was going to pass out at the time. He reports no history of chest pain, pressure, or symptoms suggesting of ischemia. Denies of any worsening shortness of breath. Denies any episodes of palpitations. He is maintaining sinus rhythm. He reports no recent fevers, chills, or night sweats. Besides recent CVA, no other significant new illnesses. PAST MEDICAL HISTORY: Positive for: 1. Coronary artery disease. 2. Paroxysmal atrial fibrillation. 3. SOFIA. 4. Hyperlipidemia. 5. Mild dementia. 6. Thrombocytopenia. 7. CVA in which he was initially treated at [facility] on 03/10/2019. He did not receive thrombolytics due to timing. 8. Remote history of pulmonary embolisms per office note I have reviewed from Dr. Solis's office. Patient and family are somewhat poor medical historians. PAST SURGICAL HISTORY: Includes CABG which he reports having done in 1991. The patient and also report he has had previous PCI, but uncertain of what vessels, where the procedure was done, or when this was done. FAMILY HISTORY: Noncontributory. SOCIAL HISTORY: The patient and live at the [facility]. He is a nonsmoker. He denies of any drinking. Denies of any illicit drug use. He had 3 adult children, his oldest daughter due to cancer, his other 2 children are alive and well. ALLERGIES: No known drug allergies. MEDICATIONS: At home, include senna 8.8 mg p.o. twice daily p.r.n., Haldol 0.5 mg p.o. q.6 hours p.r.n., milk of magnesium 30 mL p.o. daily p.r.n., Flomax 0.4 mg p.o. daily, MiraLAX 17 g p.o. daily, omeprazole 5 mg p.o. h.s., Lovenox 40 mg subcu daily at 4 p.m., clopidogrel 75 mg p.o. daily, atorvastatin 40 mg p.o. daily, acetaminophen 650 mg p.o. daily. REVIEW OF SYSTEMS: A 10-point review of systems done on patient, all negative except as mentioned above. PHYSICAL EXAMINATION: GENERAL APPEARANCE: Elderly male. He is an alert and orientated to place and time, but not location, he does orient easily. Appears to be in no acute distress at the time of my examination. VITAL SIGNS: Blood pressure 127/69, heart rate of 58, sinus rhythm on the monitor. Respirations are 22. Saturating 95% on room air. Temperature 36.6 degrees Celsius. HEENT: Head is normocephalic. Lips and tongue are pink and moist with no signs of cyanosis. Conjunctivae pink. SKIN: [place], warm, dry. No cyanosis, no clubbing, no peripheral edema. CARDIAC: Regular rate, regular rhythm, S1 and S2. A 2/6 systolic murmur noted along the left sternal border. ABDOMEN: Soft, nontender. Bowel sounds x4 quadrants, no organomegaly, no palpable masses. SKIN: [place], warm, dry. No cyanosis, no clubbing. Trace pedal edema bilateral lower extremities. VASCULAR: +2 carotids bilateral, +2 radials bilateral, +1 dorsal pedal and posterior tibial pulses bilateral. LABORATORY STUDIES: Laboratory studies drawn today showed WBC of 7.95, hemoglobin of 17.2, hematocrit 51.8, platelet count 205. INR 1.07. Sodium 136 , potassium 4.6, chloride 102, CO2 21, BUN 31, creatinine of 1.2, glucose 103, calcium 10.1, troponin of 0.063. STUDIES: Electrocardiogram as mentioned above. CTA of head and neck, done today showing mild arthrosclerotic disease, bilateral carotid pulse without flow limiting stenosis occlusion or dissection. CTA of the brain showing cerebrovascular arthrosclerosis, no evidence of significant stenosis or intraluminal thrombus in the [place] of [place]. Reviewing studies from [facility], he did undergo echocardiogram on 2018 which showed moderate concentric LVH with low normal LV systolic function. EF of 50%, with no gross regional wall motion abnormalities. Grade 2 diastolic. Grossly normal estimated pulmonary pressures. Mild aortic valve sclerosis without evidence of stenosis or regurgitation. Difficult to visualize study due to poor acoustic window. No obvious shunting but very poor window with limited diagnostic quality. It was noted the patient did undergo ОЛЬГА, but unfortunately I have no copies of those records to evaluate at this time. Reviewing back in past medical records, patient's most recent echocardiogram done at Dr. Solis's request dated May 30, 2018, showing normal LV size, moderate concentric LVH, normal LVEF of 65%, with no wall motion abnormalities. Grade 2 diastolic dysfunction. LA was mildly dilated, RA was mildly dilated, mild mitral annular calcification, mild mitral valve regurgitation. Aortic valve is trileaflet. Mild aortic cusp calcification. There was no aortic valve regurgitation. Trivial TR. RVSP 37 mmHg. The patient's most recent stress testing on record was done in December 08, 2014, which was a [facility] MPI study, which showed normal myocardial perfusion. Reviewing patient's previous medical records from his PCP's office note of Dr. Solis, November 23, 2014, stating patient had an angiogram approximately 5 years ago from that visit which he was told everything looked "normal." ASSESSMENT AND PLAN: 1. Syncopal event: Patient with a recent syncopal event with noted hypotensive while sitting. Did respond after being laid flat. CT of the head and neck, showing no thrombotic event, no new stroke symptoms. Patient with significant past history of coronary artery disease, and paroxysmal atrial fibrillation. The patient was sitting during the syncopal event, this does raise concerns of potential arrhythmia, especially with his significant cardiac history. We will continue him on continuous cardiac monitoring throughout the night. We will plan on repeating echocardiogram in the morning. I have discussed with the patient and the family about evaluating for potential cardiac ischemia and potentially doing a stress test, but they are uncertain if the patient or the family want to proceed with him undergoing angiogram if necessary. Did discuss with the patient and family, if necessary, the patient and family are wanting him to have pacemaker if needed. 2. Coronary artery disease: Patient denies any chest pain or pressure. He has been noted on recent echocardiogram to have a decline in ejection fraction from 65 in September 2018 to 50% last week. No wall motion abnormalities. He denies any chest pain or pressure. He is noted to have a mild indeterminate troponin. EKG shows no acute ST or T-wave abnormalities. At this time, we will plan on cycling his troponins. He has been resumed on current antiplatelet therapy of clopidogrel. Depending on results, may consider stress testing in the morning due to recent syncopal event and reduced ejection fraction. 3. Recent ischemic stroke with right hemiparesis: His neuro status is unchanged from previous baseline. CT and CTA of the head and neck did not show any changes. I would like to get his ОЛЬГА results from [facility], we will request copies to be sent over. I have looked in [facility] and they are not available. Potentially, his history of atrial fibrillation was the cause of this. He is currently not on full anticoagulation due to history of falls in high risk of bleeding. He has been resumed on anti-platelet therapy of clopidogrel. He is on statin therapy. 4. Paroxysmal atrial fibrillation: Patient noted with history of paroxysmal atrial fibrillation. Reviewing in his past medical records in [place], it does appear that he had been on anticoagulation until late last year. I have asked the family why he is not on this. The , patient, and son are uncertain of this. Potentially, this was due to his risk of falling. He does have a significant CHADS-VASc score of at least 6 that places him at a 9.8% a year thrombotic event risk. At the current time, we will just continue on current antiplatelet therapy. Potentially, this patient would be a good candidate for a Watchman device. He is currently on no atrioventricular estefani agents. He will be placed on continues cardiac monitoring, to evaluate for any episodes of atrial fibrillation. 5. Previous history of pulmonary embolism. Patient did have a CTA done at [facility]. 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 Reviewing his medical records, it was decided not to start him on anticoagulation due to his significant risk of falling and high risk of bleeding. 6. Hyperlipidemia: Patient is on atorvastatin. Thank you for this consultation. We will be glad to follow along with you. I did receive history from patient, his son , his , and a significant chart review. /[id number]/MODL MTDD
[2019-03-16] MEDS: MELATONIN 3 MG TAB PO SCH (20:45)
[2019-03-16] MEDS: ACETAMINOPHEN 325 MG TAB PO PRN (20:45)
[2019-03-17 04:32] LABS: PLATELET COUNT 148 10^3/uL (150-400)
[2019-03-17] MEDS ORDERED: ENOXAPARIN 40 MG/0.4 ML SYR SC SCH (09:00)
[2019-03-17] MEDS: TAMSULOSIN HCL 0.4 MG CAP PO SCH (09:46)
[2019-03-17] MEDS: CLOPIDOGREL BISULFATE 75 MG TAB PO SCH (09:46)
[2019-03-17] MEDS: NS 1,000 ML IV SCH (09:50)
--- NOTE | 2019-03-17 10:35 | ECHO ---
[email or web address] [address] [address] Main: [phone] Echocardiography Examination Transthoracic Name: NITZA BENTON MR#: [id number] Study Date: 03/17/2019 Study Time: 08:17 AM Date of : 1935 Age: 83 year(s) Height: 172.7 cm (68 in.) Weight: 90.72 kg (200 lb.) BSA: 2.04 m2 Gender: Male Examination: Echo Contrast: Image Quality: Adequate parasternal window, technically Rhythm: difficult apical window. Heart Rate: BP: 116 mmHg/61 mmHg Indication: Syncope/CAD/hx Afib/CABG/CVA Procedure Staff Referring Physician: Hospice Nurse: Annie Chowdhury [facility] Reading Physician: Sam Rodriguez MD Requesting Provider: Ordering Physician: Constantine Moffett NP Indication: Syncope/CAD/hx Afib/CABG/CVA Measurements Chambers AV/MV Label Value Normal Value Label Value Normal Value LVDd, 2D 4.1 cm (4.2cm - 5.9cm) AV PGmean 3 mmHg LVDs, 2D 2.9 cm (2.1cm - 4cm) AV Vmax 1.19 m/s IVSd, 2D 1.4 cm (0.6cm - 1.1cm) MV E Vmax 0.65 m/s LVPWd, 2D 1.6 cm (0.6cm - 1cm) MV A Vmax 0.44 m/s LA Volume, BP 77 ml (18ml - 58ml) MV E/A 1.48 LADs, 2D 4.3 cm (3cm - 4cm) MV E/E' lateral 14.6 LAESV index, BP 37.7 ml/m2 MV E/E' septal 14.9 (0.45 - 1.25) Additional Vessels MV E' septal 0.04 m/s Label Value Normal Value MV E' lateral 0.04 m/s AoRoot, MM 4 cm (2.2cm - 3.7cm) MV E/E' mean 16.25 MV E' mean 0.04 m/s TV/PV Label Value Normal Value RA Pressure 5 mmHg RVSP 32 mmHg TR Pmax 27 mmHg TR Vmax 2.62 m/s Patient: NITZA BENTON Study Date: 03/17/2019 Page 1 of 3 08:17 AM Conclusions (1) Left ventricular systolic ejection fraction was normal (60-65%) - normal wall motion - moderate concentric LVH (2) Normal RV size and function (3) Mild LA dilation with normal RA dimension (4) Mild MR with mild MAC (5) Trileaflet aortic valve without sclerosis or insufficiency (6) Mild TR - RVSP was estimated to be 32 mm Hg (7) Aortic root was 4.0 cm (8) No pericardial effusion Findings Left Ventricle: Diastolic dysfunction is present.. Left ventricle is normal in size. Normal global systolic left ventricular function. EF range is estimated at 60 % - 65 %. There is moderate concentric left ventricular hypertrophy. There are no regional wall motion abnormalities. IVS: The septum is intact. Right Ventricle: Normal size right ventricle. Right ventricular systolic function is normal. Left Atrium: The left atrium is mildly dilated. IAS: Normal appearing atrial septum. Right Atrium: The right atrium is normal in size. Mitral Valve: Mitral annular calcification is present.. Mild mitral regurgitation. No mitral valve stenosis. Aortic Valve: Aortic leaflets exhibit normal cuspal separation. No aortic valve regurgitation. There is no aortic stenosis. The aortic valve is trileaflet. Tricuspid Valve: Tricuspid valve leaflets are normal in appearance and function. Mild tricuspid regurgitation. No tricuspid valve stenosis. Right Ventricular systolic pressure is measured at 32 mmHg. Pulmonary artery pressure normal. Pulmonic Valve: Pulmonic leaflets exhibit normal cuspal separation. Trivial pulmonic valve regurgitation is present. There is no pulmonic valve stenosis. Aorta: The aorta is normal. The aortic root size in M-mode measures 4.0 cm. Aorta Measurements AoRoot, MM is 4.0 cm. Pericardium: No pericardial effusion. No pleural effusion present. Exam Details Procedure Ordered: Echo Procedure Status: Routine study Image Quality: Adequate parasternal window, technically difficult apical window. Facility Location: Cardiac Echo 1 Patient: NITZA BENTON Study Date: 03/17/2019 Page 2 of 3 08:17 AM (No Signature Object) Patient: NITZA BENTON Study Date: 03/17/2019 Page 3 of 3 08:17 AM [id number]
--- NOTE | 2019-03-17 12:08 | PDCARPN ---
Cardiology Progress Note Chief Complaint: syncope Assessment/Plan: Assessment: 83M PMH CAD/CABG 1991, ? PCI history, PAF, SOFIA, dyslipidemia, with recent ischemic CVA in 02/28. Was at rehab and noted to have a witnessed syncopal event. Was not on telemetry but BP was 62/40. Residual deficits from CVA include dysarthria and R sided hemiparesis. Echo from today shows LVEF 60-65%, mod concentric LVH, mild MR/MAC, mild TR and dilated ao root 4 cm. Has noted minimally elevated trop with no significant change on cycling enzymes. Plan: #. syncope: likely 2/2 hypotensive episode cannot r/o arrhythmogenic versus pause concomitantly recommend 1-month Preventice at time of d/c #. CAD: minimally elevated trop with WMA on echo on statin and DAPT will defer MPI as patient has no sx suggestive of angina #. PAF: was on Warfarin until 07/30 unclear why it was stopped will defer resuming this for now/ d/w hospital med given risk of hemorrhagic conversion #. hypotension: BP appears acceptable and orthostatics have been wnl will stop IV fluids to decrease risk of volume overload #. CVA: severe residual deficits currently still in rehab 03/17/19 12:08 Subjective: No cp, dyspnea, dizziness, presyncope/syncope. Admits has had poor PO intake. Objective: Vital Signs (8 Hrs) Temp Pulse Resp BP Pulse Ox 03/17/19 11:44 98.5 F 58 L 20 121/59 H 97 03/17/19 08:00 98.2 F 56 L 20 116/61 98 Intake/Output (24 Hrs) 03/16/19 03/17/19 03/18/19 05:59 05:59 05:59 Intake Total 2652 Output Total 850 Balance 1802 Intake: Oral (ml) 480 IV Infused (ml) 2172 Ns 1,000 ml @ 100 mls/hr 1672 IV CONT NADIRA Rx#: [id number] Ns 500 ml @ 1500 mls/hr 500 IV ONCE ONE Rx#: [id number] Output: Urine (ml) 850 Catheter 850 Other: Weight 88.4 kg Bladder Scan Volume (ml) Catheter 195 187 Result Diagrams: 03/17/19 03:29 03/17/19 03:29 Cardiac Labs: Cardiac Lab Results (72 Hrs) 03/17/19 03/16/19 03:29 16:00 Troponin I 0.068 H 0.051 H Telemetry: reviewed/ SR with occasional PACs and PVCs - Physical Exam Constitutional: no apparent distress Eyes: PERRL Ears, Nose, Mouth, Throat: moist mucous membranes Cardiovascular: regular rate and rhythm, no murmurs Respiratory: clear to auscultate bilat, no crackles Gastrointestinal: normoactive bowel sounds, no tenderness Skin: no rashes, no abrasions Psychiatric: cooperative, interactive ICD10 Worksheet Patient Problems: Problems Problem Status Onset CVA (cerebral vascular accident) Acute Syncope Acute
--- NOTE | 2019-03-17 12:13 | ASMTCMCOM ---
CM Note CM Note Notes: CM reviewed pts chart and spoke to MICHELLE Bryant. CM spoke to Nissa at [facility] inpatient rehab. Nissa reports that they are able to hold pts bed for [address] CM [address] that [address] Thomson put in rehab consult. PT/OT/SPL have been ordered and awaiting recommendations. Needs are TBD at this time. CM to follow. Plan: Possible [facility] Inpatient Rehab Date Signed: 03/17/2019 12:11 PM Electronically Signed By:DEVIKA Bryan
--- NOTE | 2019-03-17 14:02 | HOSPPROG ---
Hospitalist Progress Note Assessment/Plan: DIAGNOSES: * Acute syncope resolved, suspect combination of dehydration and basal delivered effects of antipsychotic medication; no definite change in heart rate or rhythm noted but hard to rule out at this time * Recent ischemic stroke with right ken[place] paresis and aphasia; no new neuro sxs in fact better than yesterday * Dehydration due to poor intake from his stroke * Recent institution of nightly Seroquel for with agitation started at the prior hospital, this has been discontinued * Indeterminate troponin; no definite signs of ischemia and there is very low suspicion of acute coronary syndrome * History of AFib; patient was apparently taken off of Coumadin in July by primary care doctor at his assisted living * History of coronary bypass surgery, and history of murmur * History of dementia?? * Hyperlipidemia * Obstructive sleep apnea * History thrombocytopenia Here so far he has had a few PVCs but no other arrythmia. He has had no further syncope. He did not have orthostatic changes on vitals testing but we were unable to do under ideal conditions due to his CVA and weakness. BUN remains high and I suspect still a bit dry. I reviewed with Malika Monterroso of Cardiology in detail today. The patient apparently did have a history of atrial fibrillation I am now finding out. He had been on Coumadin in the past but for reasons unclear to me, the family tells me that he was taken off of his Coumadin in July 2018 by his primary care physician. Will need to trying get records from Dr. Alejandro to see if I can determine what was going on at the time. We have reviewed the elevated troponin with the pt and family. I believe this is due to his syncope/hypotension, not angina or ischemic ekg changes. Discussed doing cardiolite stress, but the family and patient do not want this at present. I think this is a reasonable choice at the moment, but can revisit the question if any further issues or increased risk indentified. PLANS: * Continue EKG monitoring another 24 hr * continue IV hydration another 24 hrs * Will need to change to inpatient status * Will trying get further records as to why Coumadin was stopped in July but unless we can find some good reason would strongly recommend starting back on anticoagulation given his AFib history. Would wait another week due to his large stroke * Continue anti-platelet therapy * continue PT OT ST * attempt to get primary care records re: why coumadin stopped SUBJECTIVE: states he feels well not light headed (sitting in chair now) no nausea, no cardiac/pulm sxs OBJECTIVE Vitals reviewed: normal vitals no fever Blood Tester Fowl, my review: all sinus w a few pvcs Exam: alert relaxed in chair neuro: alert oriented, speech much more intelligible today, still w R arm/Leg weakness and R face droop (this latter is more visible to me today I believe as he has overall better muscle tone due to not being syncopal compared to yest) skin notably better skin turgor today; warm dry color ok resps not labored lungs clear BSs heart regular abd soft nondistended nontender, bowel sounds present limbs warm, no edema iv site ok labs: BUN still 30, creat stable lytes ok stable cbc trop 0.06 12 lead ekg today: I reviewed tracing, sinus rythym wR bundle branch block and 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 ICD10 Worksheet Patient Problems: Problems Problem Status Onset Syncope Acute CVA (cerebral vascular accident) Acute
--- NOTE | 2019-03-17 16:48 | PDMN ---
Medical Necessity Medical necessity: [facility] M340 Syncope, A-1 day: 83 yo w/ acute syncope w/ hypotension in setting of recent ischemic stroke w/ R hemiparesis and aphasia. Suspect dehydration and medication effects. Initially OBS for workup but requires additional MN as pt still dehydrated w/ elevated BUN, some PVCs noted on tele, elevated troponin, cardiology consult - cont tele monitoring overnight , cont IV hydration. Meets [facility] IP criteria for syncope w/ persistent dehydration requiring IVF beyond OBS care. Change to IP status 03/17/19@1349 per MD order. Hx CAD, CABG, recent CVA, HLD, dementia, SOFIA, thrombocytopenia
[2019-03-17] MEDS: ENOXAPARIN 40 MG/0.4 ML SYR SC SCH (17:04)
[2019-03-17] MEDS: ATORVASTATIN CALCIUM 40 MG TAB PO SCH (18:29)
[2019-03-17] MEDS: COLCHICINE 0.6 MG CAP/TAB PO SCH (22:22)
[2019-03-17] MEDS: MELATONIN 3 MG TAB PO SCH (22:22)
[2019-03-18] MEDS ORDERED: MELATONIN 3 MG TAB PO SCH (00:49)
[2019-03-18] MEDS ORDERED: MELATONIN 3 MG TAB PO ONE (00:49)
[2019-03-18] MEDS ORDERED: BISACODYL 10 MG SUPP PR PRN (04:10)
--- NOTE | 2019-03-18 07:13 | CPEKG ---
Test Reason : OPEN Blood Pressure : / mmHG Vent. Rate : 061 BPM Atrial Rate : 061 BPM P-R Int : 182 ms QRS Dur : 132 ms QT Int : 474 ms P-R-T Axes : 045 -62 100 degrees QTc Int : 478 ms Sinus rhythm Left bundle branch block Confirmed by Lauri Gallagher ([id number]) on 03/18/2019 7:12:57 AM Referred By: Smith Thomson Confirmed By:Lauri Gallagher
[2019-03-18] MEDS: CLOPIDOGREL BISULFATE 75 MG TAB PO SCH (08:43)
[2019-03-18] MEDS: COLCHICINE 0.6 MG CAP/TAB PO SCH ×2 (08:48→21:14)
[2019-03-18] MEDS: TAMSULOSIN HCL 0.4 MG CAP PO SCH (08:55)
--- NOTE | 2019-03-18 10:37 | PDCARPN ---
Cardiology Progress Note Chief Complaint: recent CVA/ s/p syncope Assessment/Plan: Assessment: 83M PMH CAD/CABG 1991, ? PCI history, PAF, SOFIA, dyslipidemia, with recent ischemic CVA in 02/28. Was at rehab and noted to have a witnessed syncopal event. Was not on telemetry but BP was 62/40. Residual deficits from CVA include dysarthria and R sided hemiparesis. Echo from today shows LVEF 60-65%, mod concentric LVH, mild MR/MAC, mild TR and dilated ao root 4 cm. Has noted minimally elevated trop with no significant change on cycling enzymes. Plan: #. syncope: likely 2/2 hypotensive episode cannot r/o arrhythmogenic versus pause concomitantly recommend 1-month Prevent[employer] at time of d/c #. CAD: minimally elevated trop without WMA on echo on statin and DAPT will defer MPI as patient has no sx suggestive of angina and family prefers this #. PAF: was on Warfarin until 07/30 unclear why it was stopped will defer resuming this for now/ d/w hospital med given risk of hemorrhagic conversion #. hypotension: BP appears acceptable and orthostatics have been wnl #. CVA: severe residual deficits/ would recommend ongoing rehab #. dilated aortic root: would recommend annual echo 03/18/19 10:35 Subjective: Responds that he has no cp, dizziness. Mild short of breath. Objective: Vital Signs (8 Hrs) Temp Pulse Resp BP Pulse Ox 03/18/19 06:48 97.9 F 78 20 154/91 H 93 03/18/19 03:43 98.1 F 64 19 124/68 H 95 Intake/Output (24 Hrs) 03/17/19 03/18/19 03/19/19 05:59 05:59 05:59 Intake Total 325 Output Total 500 Balance -175 Intake: Oral (ml) 325 Output: Urine (ml) 500 Catheter 500 Other: Output Comment Incontinence very very large BM Number of Voids Incontinence 1 Number of Stools Incontinence 1 Bladder Scan Volume (ml) Incontinence 434 Result Diagrams: 03/17/19 03:29 03/17/19 03:29 Telemetry: reviewed SR - Physical Exam Constitutional: no apparent distress Eyes: anicteric sclera Cardiovascular: regular rate and rhythm, no murmurs Respiratory: clear to auscultate bilat (anterior nuñez) Skin: no edema Psychiatric: cooperative, interactive ICD10 Worksheet Patient Problems: Problems Problem Status Onset Syncope Acute CVA (cerebral vascular accident) Acute
[2019-03-18 14:45] LABS: PLATELET COUNT 169 10^3/uL (150-400)
[2019-03-18] MEDS: ACETAMINOPHEN 325 MG TAB PO PRN ×2 (16:27→21:13)
[2019-03-18] MEDS: ENOXAPARIN 40 MG/0.4 ML SYR SC SCH (16:30)
[2019-03-18] MEDS ORDERED: diphenhydrAMINE 25 MG CAP PO PRN (17:18)
--- NOTE | 2019-03-18 17:20 | HOSPPROG ---
Hospitalist Progress Note Assessment/Plan: DIAGNOSES: * Acute syncope resolved, suspect combination of dehydration and vasodilator effects of new antipsychotic medication; no definite change in heart rate or rhythm noted but hard to rule out at this time * Recent ischemic stroke with right kenya paresis and aphasia seen at [facility]; no new neuro sxs in fact better than yesterday * Dehydration due to poor intake from his stroke, largely resolved at this time though BUN still a little bit high * Dementia with Behavioral Difficulty with patient constantly trying to get out of bed (high fall risk) -only specific acute finding that might explain aside from dehydration is sleep deprivation (sleeping poorly here) * Recent institution of nightly Seroquel at outside hospital for with agitation started at the prior hospital, this has been discontinued for reasons above and recommend not restarting any antipsychotic medicines at present * Indeterminate troponin; no definite signs of ischemia and there is very low suspicion of acute coronary syndrome * History of AFib; patient was apparently taken off of Coumadin in July by primary care doctor at his assisted living for unclear reasons, family does not know * History of coronary bypass surgery, and history of murmur * Hyperlipidemia * Obstructive sleep apnea * History thrombocytopenia * At this time he is nearing medical stability to go back to rehab unit but behaviorally can not go yet due to constantly tyring to climb out of bed In terms of the sleep issue melatonin not helping; other med choices difficult w syncope episode, history heart disease, fall risk, dementia, age... PLANS: * Continue EKG monitoring for any A Fib, though may be moot as has a history * continue IV hydration * reorientation and other measures for his agitation * soft music in evening if available * Will try very low dose of Benadryl 12.5 see how he tolerates this and if sleeps better; if still having trouble with sleep over time, could consider trial of neuroleptics medicine with close monitoring of orthostasis * Plan on starting an anticoagulant at 2 weeks from onset of stroke, but still attempting to get records to find why Coumadin was stopped in July * Continue anti-platelet therapy * continue PT OT ST * attempt to get primary care records re: why coumadin stopped SUBJECTIVE: states he feels well not light headed (sitting in chair now) no nausea, no cardiac/pulm sxs OBJECTIVE Vitals reviewed: normal vitals no fever Appeals Reviewer Veteran, my review: all sinus w a few pvcs Exam: alert relaxed in chair neuro: alert oriented, speech much more intelligible today, still w R arm/Leg weakness and R face droop (this latter is more visible to me today I believe as he has overall better muscle tone due to not being syncopal compared to yest) skin notably better skin turgor today; warm dry color ok resps not labored lungs clear BSs heart regular abd soft nondistended nontender, bowel sounds present limbs warm, no edema iv site ok labs: BUN now down to 24 with stable creatinine Electrolytes okay Objective: Vital Signs Temp Pulse Resp BP Pulse Ox 37.4 C 80 18 141/81 H 92 03/18/19 15:36 03/18/19 15:36 03/18/19 15:36 03/18/19 15:36 03/18/19 15:36 Laboratory Results 03/18/19 14:36 03/18/19 14:36 03/17/19 03/18/19 03/19/19 06:59 06:59 06:59 Intake Total 325 Output Total 500 100 Balance -175 -100 - Time Spent With Patient Time Spent with Patient: greater than 35 minutes Time Spent with Patient: Greater than 35 minutes spent on this patients care, greater than 50% of time spent counseling, educating, and coordinating care regarding the above mentioned plan. ICD10 Worksheet Patient Problems: Problems Problem Status Onset Syncope Acute CVA (cerebral vascular accident) Acute
[2019-03-18] MEDS: MELATONIN 3 MG TAB PO SCH (21:14)
[2019-03-18] MEDS: ATORVASTATIN CALCIUM 40 MG TAB PO SCH (21:17)
[2019-03-19] MEDS: CLOPIDOGREL BISULFATE 75 MG TAB PO SCH (08:24)
[2019-03-19] MEDS: COLCHICINE 0.6 MG CAP/TAB PO SCH ×2 (08:24→22:03)
[2019-03-19] MEDS: TAMSULOSIN HCL 0.4 MG CAP PO SCH (08:24)
[2019-03-19] MEDS: ACETAMINOPHEN 325 MG TAB PO PRN ×2 (10:44→17:09)
--- NOTE | 2019-03-19 10:45 | GDS ---
[f rep st] DISCHARGE SUMMARY FINAL DIAGNOSES: 1. Syncope. 2. Recent ischemic stroke with dense right-sided hemiparesis and aphasia. 3. Acute on chronic encephalopathy, likely metabolic. 4. History of atrial fibrillation, off anticoagulation. 5. History of coronary artery bypass surgery. 6. Hyperlipidemia. 7. Obstructive sleep apnea. HOSPITAL COURSE: This is an 83-year-old man who had a recent CVA, was treated at [facility]. Th at occurred on 03/10/2019, he had severe right-sided weakness and altered mental status with aphasia. He was transferred to our inpatient rehab facility on 03/14/2019. He had been started on some atyp ical antipsychotics for significant agitation and delirium. On 03/16/2019 he had what appears to be a syncopal event. It is unclear exactly what triggered this event; however, it is suspected that he may have been dehydrated with some vasodilatory effects of the antipsychotics. We have been unable t o rule out a cardiac arrhythmia, Cardiology is recommending outpatient rhythm monitoring. I have con sidered the risks versus benefits of antipsychotics in the patient, I feel as though continuing to tr y antipsychotics at a low-dose is likely the safer option. If he has another syncopal event we would strongly need to reconsider this. I have changed his antipsychotic from Zyprexa to low-dose Seroque l as needed. There is no evidence of prolonged QT thus torsade is very unlikely. In terms of his stroke, he is currently on aspirin and Plavix. He does have a history of atrial fibr illation, his anticoagulation was stopped last July for unclear reasons. Recommend that he rest art his anticoagulation 2 weeks after his stroke, that occurred on 03/10. At that point, if Cardiolo gy agrees, could stop his antiplatelets in favor of anticoagulation. He is currently on Lovenox for DVT prophylaxis. DISPOSITION: He is transferred back to inpatient rehab in stable condition. FOLLOWUP: 1. Cardiology for outpatient rhythm monitoring. 2. Inpatient rehab for ongoing physical therapy and speech therapy. BILLING: I spent more than 30 minutes on the day of discharge coordinating care. /[id number]/MODL
[2019-03-19] MEDS ORDERED: QUEtiapine FUMARATE 25 MG TAB PO PRN (11:10)
--- NOTE | 2019-03-19 11:11 | HOSPPROG ---
Hospitalist Progress Note Assessment/Plan: # fever - check UA, BCx, CXR # syncope - suspected d/t hypotension, possible anti-psychotic - will need outpatient rhythm monitoring # a-fib - had been off AC per report - restart 2 weeks after CVA # acute on chronic encephalopathy - follow with treatment of above # CVA with demse R sided hemiparesis and aphasia - cont plavix/asa/stating, start AC two weeks post-CVA # CAD s/p CABG - asa/plavix # agitation - seroquel prn Subjective: Had originally planned for discharge, called back to bedside for a fever; noted to have urinary frequency Objective: Vital Signs Temp Pulse Resp BP Pulse Ox 39.4 C H 65 18 134/63 H 92 03/19/19 10:49 03/19/19 08:00 03/19/19 08:00 03/19/19 08:00 03/19/19 08:00 Laboratory Results 03/18/19 14:36 03/18/19 14:36 03/18/19 03/19/19 03/20/19 05:59 05:59 05:59 Intake Total 325 1075 Output Total 500 102 Balance -175 973 - Time Spent With Patient Time Spent with Patient: greater than 35 minutes Time Spent with Patient: Greater than 35 minutes spent on this patients care, greater than 50% of time spent counseling, educating, and coordinating care regarding the above mentioned plan. - Physical Exam Constitutional: uncomfortable Ears, Nose, Mouth, Throat: hearing normal Cardiovascular: No edema Respiratory: no respiratory distress Gastrointestinal: No distension Genitourinary: No schneider in urethra Skin: warm Musculoskeletal: full muscle strength Neurologic: other (AOx2) Psychiatric: not anxious ICD10 Worksheet Patient Problems: Problems Problem Status Onset CVA (cerebral vascular accident) Acute Syncope Acute
[2019-03-19] MEDS: ASPIRIN EC 81 MG TAB PO SCH (11:44)
[2019-03-19 12:24] LABS: PLATELET COUNT 166 10^3/uL (150-400)
[2019-03-19] MEDS: ENOXAPARIN 40 MG/0.4 ML SYR SC SCH (14:57)
[2019-03-19] MEDS: ATORVASTATIN CALCIUM 40 MG TAB PO SCH (17:09)
[2019-03-19] MEDS: MELATONIN 3 MG TAB PO SCH (22:03)
[2019-03-20] MEDS: NS 1,000 ML IV SCH ×2 (04:04→17:20)
[2019-03-20 08:18] LABS: PLATELET COUNT 143 10^3/uL (150-400)
[2019-03-20] MEDS: COLCHICINE 0.6 MG CAP/TAB PO SCH ×2 (08:48→21:38)
[2019-03-20] MEDS: ASPIRIN EC 81 MG TAB PO SCH (08:48)
[2019-03-20] MEDS: CLOPIDOGREL BISULFATE 75 MG TAB PO SCH (08:48)
[2019-03-20] MEDS: TAMSULOSIN HCL 0.4 MG CAP PO SCH (08:49)
--- NOTE | 2019-03-20 11:43 | HOSPPROG ---
Hospitalist Progress Note Assessment/Plan: # UTI - culture still pending - cont rocephin # sepsis (leuk, fever, encephalopathy) - d/t UTI, improved # metabolic encephalopathy - was off baseline yesterday, better today; d/t UTI # syncope - suspected d/t hypotension, possible anti-psychotic - will need outpatient rhythm monitoring # a-fib - had been off AC per report - restart 2 weeks after CVA # CVA with dense R sided hemiparesis and aphasia - cont plavix/asa/stating, start AC two weeks post-CVA # CAD s/p CABG - asa/plavix # agitation - seroquel prn # dispo - likely tomorrow to rehab Subjective: much more conversant and alert today Objective: Vital Signs Temp Pulse Resp BP Pulse Ox 36.4 C 62 16 101/55 L 94 03/20/19 11:09 03/20/19 11:09 03/20/19 11:09 03/20/19 11:09 03/20/19 11:09 Laboratory Results 03/20/19 07:46 03/20/19 07:46 03/19/19 03/20/19 03/21/19 05:59 05:59 05:59 Intake Total 1075 780 Output Total 102 Balance 973 780 - Physical Exam Constitutional: no apparent distress Cardiovascular: regular rate and rhythym, no murmur, rub, or gallop Respiratory: no respiratory distress, no rales or rhonchi, clear to auscultation Gastrointestinal: soft, non-tender abdomen, no palpable masses, No guarding, No rebound, No distension ICD10 Worksheet Patient Problems: Problems Problem Status Onset CVA (cerebral vascular accident) Acute Syncope Acute
--- NOTE | 2019-03-20 12:58 | ASMTCMCOM ---
CM Note CM Note Notes: Per hospitalist, patient will be appropriate to d/c to [facility] inpatient rehab tomorrow. I called and notified Lacey at rehab. Case Management will follow. Date Signed: 03/20/2019 12:57 PM Electronically Signed By:Anali Landa RN
[2019-03-20] MEDS: ENOXAPARIN 40 MG/0.4 ML SYR SC SCH (17:19)
[2019-03-20] MEDS: ATORVASTATIN CALCIUM 40 MG TAB PO SCH (17:20)
[2019-03-20] MEDS: ACETAMINOPHEN 325 MG TAB PO PRN (21:38)
[2019-03-20] MEDS: MELATONIN 3 MG TAB PO SCH (21:38)
[2019-03-21] MEDS: TAMSULOSIN HCL 0.4 MG CAP PO SCH (10:11)
[2019-03-21] MEDS: CLOPIDOGREL BISULFATE 75 MG TAB PO SCH (10:11)
[2019-03-21] MEDS: ASPIRIN EC 81 MG TAB PO SCH (10:11)
[2019-03-21] MEDS: COLCHICINE 0.6 MG CAP/TAB PO SCH (10:18)
--- NOTE | 2019-03-21 11:31 | ASMTLACE ---
LACE Length of stay for Answers: 4-6 days current admission Acuity / Level of Answers: Yes Care: Did the patient have an inpatient admission? Comorbidities - select Answers: Cerebrovascular disease all that apply (CVA, TIA, aneurysms, vasc ular dementia) Coronary Artery Disease Dementia Other Notes: HLD, SOFIA, CABG, thrombo cyt openia # of Emergency department Answers: 1-2 visits in the last 6 months Score: 15 Date Signed: 03/21/2019 11:30 AM Electronically Signed By:Anali Landa RN
--- NOTE | 2019-03-21 11:33 | ASMTDCNOTE ---
Case Management Discharge Discharge Order Complete? Answers: Yes Patient to Obtain Answers: Other Notes: [facility] Medications Transportation Arranged Answers: Other Notes: remaining at [facility] [place] Discharge Comments Notes: Patient transferring to [facility]. Per Lacey at [facility], transfer @ 1300. MICHELLE Neri will call report. Date Signed: 03/21/2019 11:32 AM Electronically Signed By:Anali Landa RN
[2019-03-21 12:07] VITALS: BP 131/85
--- NOTE | 2019-03-21 16:43 | PDDCSUM ---
Discharge Summary Discharge Summary: Discharge diagnosis UTI Sepsis Metabolic encephalopathy Syncope AFib CVA with dense right-sided hemiparesis and aphasia Coronary disease Agitation The patient was originally admitted to inpatient rehab after suffering a CVA at [facility]. While in rehab a rapid response was called after the patient became unresponsive and hypotensive. He was transferred to the PCU started on aggressive fluids and echocardiogram was obtained and cardiology and Neurology were both consulted. Neurology and Cardiology agreed that the patient likely suffered a syncopal episode secondary to dehydration rather than a TIA. The patient's anticoagulation had been stopped due to his CVA and he was started on aspirin and Plavix. Plan was to restart anticoagulation 2 weeks after the CVA which would be around the 24 of March. He was also after discharge on the 19 of March but then developed a fever which prompted a urinalysis and initiation of treatment for likely underlying urinary tract infection. He was transitioned from Rocephin to Keflex after is urinalysis grew out E coli which was pansensitive. He continued to improve and was approved for transfer back to inpatient rehab. He was discharged back to inpatient rehab to complete a course of Keflex 500 mg twice daily for is underlying urinary tract infection as well as to restart his anticoagulation on March 24 for underlying AFib. Disposition Transfer to inpatient rehab New medications Keflex 500 mg twice daily I spent over 30 min on the discharge of this patient
[2019-03-21] MEDS ORDERED: CEPHALEXIN 500 MG CAP PO SCH (21:00)
== END 2019-03-21 13:55 | DRG 312 ==
LOC: F2W 12:38 → OBSVTOIN 03-17 13:49
PROVIDERS: ADMIT Internal Medicine; ATTEND Internal Medicine
DX: R55 Syncope and collapse (principal); A41.51 Sepsis due to Escherichia coli [E. coli]; G93.41 Metabolic encephalopathy; N39.0 Urinary tract infection, site not specified; I69.351 Hemiplegia and hemiparesis following cerebral infarction affecting right dominant side; I27.82 Chronic pulmonary embolism; E86.0 Dehydration; T43.505A Adverse effect of unspecified antipsychotics and neuroleptics, initial encounter; I48.0 Paroxysmal atrial fibrillation; I69.320 Aphasia following cerebral infarction; E78.5 Hyperlipidemia, unspecified; I25.10 Atherosclerotic heart disease of native coronary artery without angina pectoris; G47.33 Obstructive sleep apnea (adult) (pediatric); Z95.1 Presence of aortocoronary bypass graft
CPT/HCPCS: 92507-GN; 92523-GN; 92610-GN; 97112-GP; 97162-GP; 97167-GO; 97530-GO; 97530-GP; 97535-GO; G0378; J0696; J1650

== ENCOUNTER 2019-03-20 14:22 | Inpatient (IN) | payer OTHER, MEDICARE ==
[2019-03-21] MEDS ORDERED: ACETAMINOPHEN 325 MG TAB PO PRN (14:40)
[2019-03-21] MEDS ORDERED: POLYETHYLENE GLYCOL 3350 17 GM PKT PO PRN (14:40)
[2019-03-21] MEDS ORDERED: SENNOSIDES 17.6 MG/10 ML UDL PO PRN (14:40)
[2019-03-21] MEDS: QUEtiapine FUMARATE 25 MG TAB PO PRN (14:58)
[2019-03-21] MEDS: ENOXAPARIN 40 MG/0.4 ML SYR SC SCH (15:00)
--- NOTE | 2019-03-21 15:48 | GHP ---
[f rep st] HISTORY AND PHYSICAL POST ADMISSION PHYSICIAN EVALUATION AND REHABILITATION TREATMENT PLAN. DATE OF ADMISSION: 03/21/2019 DATE OF EVALUATION: 03/21/2019. TIME OF EVALUATION: 1410. REFERRING FACILITY: [facility]. IMPAIRMENT GROUP: 1.2. DATE OF ONSET: 03/10/2019. REFERRING PHYSICIAN: Dr. Thomson. CONSULTING PHYSICIANS: He was seen by Neurology, Dr. Su and by Cardiology, KATHIA Lau. REHABILITATION DIAGNOSIS: Cerebrovascular accident. ETIOLOGIC DIAGNOSIS: Right body involvement (left brain). HISTORY OF PRESENT ILLNESS: This patient presented to [facility] on 2018, with right-sided weakness and altered mental status. MRI showed a lacunar infarction to the posterior left internal capsule. Further investigations included CT of the head which ruled out hemorrhage and CT angiogram which ruled out a large vessel occlusion. Echocardiogram showed pulmonary hypertension, mildly reduced ejection fraction at 50%, and no intracardiac shunt. CT pulmonary angiogram showed pulmonary arteries dilated consistent with pulmonary hypertension. He was admitted to [facility] inpatient rehabilitation on 03/14/2019, and initiated rehabilitative therapies. On 03/16/2019, he became unresponsive while sitting in a wheelchair working with Speech and Language Pathology. Blood pressure was 62/40. He was transferred to the emergency department on a stroke alert and then admitted to the hospital. His syncopal episode was considered to be due to dehydration plus the effects of new antipsychotic medications. While he was in the acute care hospital, he developed a fever and was diagnosed with a UTI, as well as acute on chronic encephalopathy. He was treated with antibiotics and has had improvement in his mentation, as well as resolution of his fever. STUDIES AND LABS: During his most recent hospitalization, CBC initially was overall normal, except for a slightly low platelet count of 148. He developed an elevated white blood cell count which was up to 14.74 on 03/20/2019. He developed anemia likely from fluid replacement with a hemoglobin of 12.6, and hematocrit of 36.3. He continued to have slightly low platelet count at 143. Serum chemistries showed overall normal renal function and electrolytes, though he appeared mildly dehydrated with a BUN of 30 and a creatinine of 0.8. On 07/2019, he had mildly elevated blood sugars. At [facility], his hemoglobin A1c was 6.1. Liver function showed a slight elevation of total bilirubin of 1.9, and a slightly low albumin of 3.1, and otherwise within normal limits. He had a slight elevation of his troponins at 0.051 and 0.068. At [facility], his LDL was 179. Urinalysis showed 1+ protein, 3+ blood, 2 + urobilinogen, 2+ leukocyte esterase, 50-182 red blood cells, and 50-182 white blood cells. Urine culture grew Escherichia coli, as well as low colony counts of a gram-negative lauren which was non lactose fermenting. The Escherichia coli was pansensitive. He was treated with ceftriaxone IV prior to results of the urine culture and has been changed to cephalexin subsequently. An echocardiogram was done at the [facility] hospital showing left ventricular diastolic dysfunction, normal left ventricular ejection fraction, mild concentric LVH, normal right ventricular size and function, mildly dilated left atrium, normal right atrium, mild mitral regurgitation, mild tricuspid regurgitation, elevated right ventricular pressure at 32 mmHg. A chest x-ray was done which showed mild cardiomegaly, but was otherwise unremarkable AP study. PRECAUTIONS: He is a fall risk. ACTIVE COMORBIDITIES: He has a tier 3 comorbidity of hemiparesis. He otherwise has no active tier 1, tier 2, or tier 3 comorbidities. PAST MEDICAL HISTORY: 1. Coronary artery disease. 2. Dementia. 3. Dyslipidemia. 4. Heart murmur. 5. Sleep apnea. 6. Thrombocytopenia. PAST SURGICAL HISTORY: He has had coronary artery bypass graft. ALLERGIES: There are no known drug allergies. PRE-HOSPITAL MEDICATIONS: 1. Amlodipine 5 mg at bedtime. 2. Cholecalciferol daily. 3. Isosorbide mononitrate 30 mg nightly. ADMISSION MEDICATIONS: 1. Acetaminophen 650 mg p.o. q.4 hours p.r.n. 2. Aspirin 81 mg p.o. daily. 3. Atorvastatin 40 mg p.o. daily at 1800 hours. 4. Cephalexin 500 mg p.o. twice daily. 5. Clopidogrel 75 mg p.o. daily. 6. Enoxaparin 40 mg subcutaneous daily at 1600 hours. 7. Magnesium hydroxide 30 mL p.o. daily p.r.n. constipation. 8. Melatonin 6 mg p.o. at bedtime. 9. Polyethylene glycol 17 g p.o. daily p.r.n. constipation. 10. Quetiapine 25 mg p.o. twice daily p.r.n. agitation. 11. Senna 8.8 mg p.o. twice daily p.r.n. constipation. 12. Tamsulosin 4 mg p.o. daily. PSYCHOSOCIAL HISTORY: He is . He had been living with his at [facility]. He is unclear where he will return. He reports that his is at a snf facility separate from him at present. He is a nonsmoker, nondrinker. He has a local son, who is involved with his care. 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 FAMILY HISTORY: Noncontributory. REVIEW OF SYSTEMS: Fevers and chills associated with a urinary tract infection have resolved. He denies dysuria or urinary frequency. He denies cough or dyspnea. He denies recent weight change. He is not in pain. He has a good appetite and denies nausea, vomiting, or diarrhea. He reports he has had constipation for several days. He denies joint pain or joint swelling. He denies skin rash or skin breakdown. Nursing reports that he has been tearful, but he currently denies depression or anxiety. Otherwise, a 10-point review of systems is negative. PHYSICAL EXAM: VITALS: Blood pressure is 149/91, heart rate is 75, respiratory rate is 16, oxygen saturation is 95% on room air, temperature is 36.7 degrees centigrade. His weight is 88.4 kg for a body mass index of 26.4. GENERAL: This is a well-nourished, well-developed, elderly man lying in bed, dressed in hospital gown, obviously with right hemiparesis, and in no acute distress. HEENT: Extraocular movements are intact. Pupils are equal, round, reactive to light. Mucous membranes are mildly dry. Dentition is in good condition. He has an uncrowded airway, Mallampati class 2. There is no oropharyngeal erythema or exudate. There is no posterior oropharyngeal mucus. NECK: Supple. HEART: Regular rate and rhythm with no murmurs, rubs, or gallops. LUNGS: Clear to auscultation bilaterally, but for a few fine inspiratory crackles at the right lower lobe. ABDOMEN: Soft, nontender, nondistended with normoactive bowel sounds and no hepatosplenomegaly. EXTREMITIES: There is no cyanosis, clubbing, or edema. Radial and dorsalis pedis pulses are 2+ bilaterally. NEUROLOGIC: He is alert and oriented to his self, location, and general situation. He is disoriented to the date, thinking that is currently early January. Cranial nerves 2-12 are grossly intact. Sensation is intact to light touch. He is densely hemiparetic on the right side. There is some rigidity with hip flexion and possibly with shoulder extension. Muscle strength is normal on the left. SKIN: There is no rash and there is no skin breakdown. CURRENT LEVEL OF FUNCTION PER THE PREADMISSION SCREEN: He required setup for feeding and for grooming. He required total assist for lower body dressing. Toileting required total assist. Bed mobility required maximal assist and verbal cues. He was a 2 person transfer with moderate assistance and verbal cues with a Mai Stedy. He leans to the right. He required 2 person moderate assist for balance in transfers. Seated balance required contact guard to minimal assist. Endurance was fair. He was noted to have expressive aphasia. Regarding cognition, he had impaired attention, short-term memory deficits, and motor planning deficits. He was noted to have right inattention. On today's exam expressive aphasia is less evident than in the preadmission screen. Otherwise, there are no significant changes. IMPRESSION: This is an 83-year-old man with history of dyslipidemia and atrial fibrillation who suffered a lacunar left posterior internal capsule cerebrovascular accident leaving him with a dense right hemiparesis. In his initial hospitalization at [facility], he was treated with aspirin, atorvastatin and clopidogrel. Blood pressure control was continued with amlodipine. Olanzapine was initiated presumably for agitated behavior. He came to inpatient rehabilitation, but after 2 days, had a syncopal episode with a low blood pressure, prompting transfer to the acute hospital at [facility]. There, dysrhythmia was not observed. Echocardiogram was repeated with no significant changes. He was found to be dehydrated and thought to be suffering from adverse effects of the antipsychotic medication. He became delirious and febrile, and was diagnosed with a urinary tract infection, which was treated. He had gradual improvement in his mental status over several days and finally was ready to return to inpatient rehabilitation. His goal is to return home to independent living at the [facility] with family and supportive services. For a safe discharge, it is anticipated that he will advance to minimal to moderate assist level for self-care and mobility from a wheelchair level with supportive services and family support. He will need to demonstrate compensatory strategies and insight to carry out daily function safely. He will have therapy with Physical Therapy, Occupational Therapy, and Speech and Language Pathology for 60 minutes per day for each discipline on 5-7 days of the week. His expected duration of stay is 14-21 days. It is anticipated that upon discharge he will continue to benefit from home health services, including Nursing, Speech and Language Pathology, Social Work, Occupational Therapy and Physical Therapy, as well as a stroke support group. PLAN: 1. Cerebrovascular accident, posterior left internal capsule, with dense right hemiparesis. PT and OT to optimize mobility and activities of daily living toward the minimal to moderate assist level from wheelchair. 2. Cognitive impairment to be treated per Speech and Language Pathology. He has a history of dementia. 3. Urinary tract infection with encephalopathy. He has been clearing. He is on cephalexin. This will be continued for a total of 7 days of antibiotic treatment. 4. Secondary prevention of cerebrovascular accident. Continue aspirin, clopidogrel, blood pressure control, and control of dyslipidemia. 5. Hypertension. Continue amlodipine. 6. Dyslipidemia. Continue atorvastatin. 7. History of encephalopathy. Continue melatonin. Continue p.r.n. quetiapine , but will have a low threshold to discontinue this medication. 8. Constipation. He had a large bowel movement several days ago, but not since. Continue laxatives as ordered out of the hospital. 9. Benign prostatic hyperplasia. Continue tamsulosin. He had bladder scanning in the hospital with a postvoid residual of 31 mL. 10. Coronary artery disease. Will benefit from the same secondary prevention as CVA. 11. History of atrial fibrillation. No dysrhythmia has been noted at [facility] or throughout his stay at [facility]. We will consider obtaining further records. Per review of what is available currently, the risk of fall and bleed appear to outweigh the risk of CVA. However, now he is status post CVA with a CHADS2-VASc score of 5, indicating a stroke risk of 7% to 10% approximately. HAS-BLED score is 4, indicating 8.9% risk of bleed. He is relatively protected on dual-antiplatelet therapy plus enoxaparin at present. We will defer further decisions regarding anticoagulation at present. 12. Prophylaxis. Continue enoxaparin as he has dense hemiparesis. Unless his mobility is improved, he likely will need DVT prophylaxis for as long as 6 weeks or more. 13. Followup. His primary care provider is Dr. Poncho Alejandro. He should consider a Cardiology followup as an outpatient for long-term rhythm monitoring to rule out atrial fibrillation. Per hospital discharge summary, Cardiology's recommendation was to consider resuming anticoagulation 2 weeks after occurrence of a stroke, which was 03/10/2019. /[id number]/MODL MTDD
[2019-03-21] MEDS: ATORVASTATIN CALCIUM 40 MG TAB PO SCH (17:13)
[2019-03-21] MEDS: MELATONIN 3 MG TAB PO SCH (21:17)
[2019-03-21] MEDS: CEPHALEXIN 500 MG CAP PO SCH (21:17)
[2019-03-22 05:41] LABS: PLATELET COUNT 159 10^3/uL (150-400)
[2019-03-22] MEDS: CEPHALEXIN 500 MG CAP PO SCH ×2 (08:26→21:21)
[2019-03-22] MEDS: ASPIRIN 81 MG CHEWABLE TAB PO SCH (08:26)
[2019-03-22] MEDS: CLOPIDOGREL BISULFATE 75 MG TAB PO SCH (08:26)
[2019-03-22] MEDS: TAMSULOSIN HCL 0.4 MG CAP PO SCH (08:26)
--- NOTE | 2019-03-22 08:43 | SOAPPROG ---
SOWINNIE Progress Note Assessment/Plan: Assessment/Plan: This is an 83-year-old man with history of dyslipidemia and atrial fibrillation who suffered a lacunar left posterior internal capsule cerebrovascular accident 1. Cerebrovascular accident, posterior left internal capsule, with dense right hemiparesis. PT and OT to optimize mobility and activities of daily living toward the minimal to moderate assist level from wheelchair. 2. Cognitive impairment to be treated per Speech and Language Pathology. He has a history of dementia. 3. Urinary tract infection with encephalopathy. He has been clearing. He is on cephalexin. This will be continued for a total of 7 days of antibiotic treatment. 4. Secondary prevention of cerebrovascular accident. Continue aspirin, clopidogrel, blood pressure control, and control of dyslipidemia. 5. Hypertension. Continue amlodipine. 6. Dyslipidemia. Continue atorvastatin. 7. History of encephalopathy. Continue melatonin. Continue p.r.n. quetiapine , but will have a low threshold to discontinue this medication. 8. Constipation. Continue laxatives - monitor for consistent output 9. Benign prostatic hyperplasia. Continue tamsulosin. He had bladder scanning in the hospital with a postvoid residual of 31 mL. 10. Coronary artery disease. Will benefit from the same secondary prevention as CVA. 11. History of atrial fibrillation. No dysrhythmia has been noted at [facility] or throughout his stay at [facility]. We will consider obtaining further records. Per review of what is available currently, the risk of fall and bleed appear to outweigh the risk of CVA. However, now he is status post CVA with a CHADS2-VASc score of 5, indicating a stroke risk of 7% to 10% approximately. He is relatively protected on dual-antiplatelet therapy plus enoxaparin at present. We will defer further decisions regarding anticoagulation at present. HAS-BLED score is 4, indicating 8.9% risk of bleed. 12. Prophylaxis. Continue enoxaparin as he has dense hemiparesis. Unless his mobility is improved, he likely will need DVT prophylaxis for as long as 6 weeks or more. 13. Followup. His primary care provider is Dr. Poncho Alejandro. He should consider a Cardiology followup as an outpatient for long-term rhythm monitoring to rule out atrial fibrillation. Per hospital discharge summary, Cardiology's 03/22/19 08:40 Subjective: Very pleasant this morning. No complaints of pain. Questions regarding his upcoming day and everyone's role. NO bm yet today. no fevers/chills. Objective: Vital Signs Temp Pulse Resp BP Pulse Ox 98.4 F 55 L 16 124/69 H 92 03/22/19 05:27 03/22/19 05:27 03/22/19 05:27 03/22/19 05:27 03/22/19 05:27 Laboratory Results 03/22/19 05:17 03/22/19 05:17 03/21/19 03/22/19 03/23/19 05:59 05:59 05:59 Intake Total 622 Balance 622 Physical Exam - Physical Exam General Appearance: alert, no apparent distress, other (Was seen face to face in his room - sitting up in his room) EENT: other (MMM) Respiratory: lungs clear, normal breath sounds Cardiac/Chest: normal peripheral pulses Abdomen: normal bowel sounds, non-tender, soft Skin: normal color Neuro/Psych: alert, other (Right sided dense hemiparesis) ICD10 Worksheet Patient Problems: Problems Problem Status Onset CVA (cerebral vascular accident) Acute Syncope Acute
[2019-03-22] MEDS ORDERED: POTASSIUM CL 20 MEQ/15 ML UDCUP PO ONE (09:15)
[2019-03-22] MEDS: ENOXAPARIN 40 MG/0.4 ML SYR SC SCH (17:13)
[2019-03-22] MEDS: ATORVASTATIN CALCIUM 40 MG TAB PO SCH (17:13)
[2019-03-22] MEDS: MELATONIN 3 MG TAB PO SCH (21:20)
[2019-03-23] MEDS: CEPHALEXIN 500 MG CAP PO SCH ×2 (09:22→20:29)
[2019-03-23] MEDS: ASPIRIN 81 MG CHEWABLE TAB PO SCH (09:22)
[2019-03-23] MEDS: CLOPIDOGREL BISULFATE 75 MG TAB PO SCH (09:22)
[2019-03-23] MEDS: TAMSULOSIN HCL 0.4 MG CAP PO SCH (09:22)
--- NOTE | 2019-03-23 09:40 | SOAPPROG ---
SOAP Progress Note Assessment/Plan: Assessment/Plan: Mr. St is an 83-year-old man with history of dyslipidemia and atrial fibrillation who suffered a lacunar left posterior internal capsule cerebrovascular accident # Cerebrovascular accident, posterior left internal capsule, with dense right hemiparesis. * PT and OT to optimize mobility and activities of daily living toward the minimal to moderate assist level from wheelchair. # Cognitive impairment * Speech and Language Pathology will provide evaluation and treatment. * He has a history of dementia. # Urinary tract infection with encephalopathy. * Continue Cephalexin. This will be continued for a total of 7 days of antibiotic treatment.(03/28/19) # Secondary prevention of cerebrovascular accident. * Continue aspirin, clopidogrel, blood pressure control, and control of dyslipidemia. # Hypertension. * Continue amlodipine. # Dyslipidemia. * Continue atorvastatin. # History of encephalopathy. * Continue melatonin. * Continue p.r.n. quetiapine, but will have a low threshold to discontinue this medication. # Constipation. * Continue laxatives - monitor for consistent output # Benign prostatic hyperplasia. * Continue tamsulosin. * He had bladder scanning in the hospital with a postvoid residual of 31 mL. # Coronary artery disease. * Will benefit from the same secondary prevention as CVA. # History of atrial fibrillation. * No dysrhythmia has been noted at [facility] or throughout his stay at [facility]. * Per review of what is available currently, the risk of fall and bleed appear to outweigh the risk of CVA. However, now he is status post CVA with a CHADS2- VASc score of 5, indicating a stroke risk of 7% to 10% approximately. He is relatively protected on dual-antiplatelet therapy plus enoxaparin at present. We will defer further decisions regarding anticoagulation at present. * HAS-BLED score is 4, indicating 8.9% risk of bleed. # Prophylaxis. Continue enoxaparin as he has dense hemiparesis. Unless his mobility is improved, he likely will need DVT prophylaxis for as long as 6 weeks or more. # Followup. * His primary care provider is Dr. Poncho Alejandro. * He should consider a Cardiology followup as an outpatient for long-term rhythm monitoring to rule out atrial fibrillation. Per hospital discharge summary, Cardiology's recommendation was to consider resuming anticoagulation 2 weeks after occurrence of a stroke, which was 03/10/2019. 03/23/19 09:41 03/23/19 09:43 Subjective: Doing pretty well today. Mildly confused regarding today's vs yesterday's events. Was telling RN how nice that someone finally got him out of bed today. No fevers/chills. Not reporting any pain. Objective: Vital Signs Temp Pulse Resp BP Pulse Ox 97.5 F 53 L 16 135/61 H 92 03/23/19 06:01 03/23/19 06:01 03/23/19 06:01 03/23/19 06:01 03/23/19 06:01 Laboratory Results 03/22/19 05:17 03/22/19 05:17 03/22/19 03/23/19 03/24/19 05:59 05:59 05:59 Intake Total 622 850 350 Output Total 800 Balance 622 50 350 Physical Exam - Physical Exam General Appearance: alert, no apparent distress, other (Sitting up in his chair during this face to face encounter) EENT: PERRL/EOMI, other (MMM) Respiratory: lungs clear, normal breath sounds Cardiac/Chest: regular rate, rhythm Abdomen: non-tender, soft Skin: other (Mild venous stasis like changes in lower part of the shins) Neuro/Psych: alert, normal mood/affect ICD10 Worksheet Patient Problems: Problems Problem Status Onset CVA (cerebral vascular accident) Acute Syncope Acute
[2019-03-23] MEDS: ATORVASTATIN CALCIUM 40 MG TAB PO SCH (17:47)
[2019-03-23] MEDS: ENOXAPARIN 40 MG/0.4 ML SYR SC SCH (17:47)
[2019-03-23] MEDS: QUEtiapine FUMARATE 25 MG TAB PO PRN (20:29)
[2019-03-23] MEDS: MELATONIN 3 MG TAB PO SCH (20:29)
[2019-03-24] MEDS: CEPHALEXIN 500 MG CAP PO SCH ×2 (08:40→20:37)
[2019-03-24] MEDS: TAMSULOSIN HCL 0.4 MG CAP PO SCH (08:40)
[2019-03-24] MEDS: ASPIRIN 81 MG CHEWABLE TAB PO SCH (08:40)
[2019-03-24] MEDS: CLOPIDOGREL BISULFATE 75 MG TAB PO SCH (08:40)
[2019-03-24] MEDS: MAGNESIUM HYDROXIDE 30 ML UDCUP PO PRN (08:42)
--- NOTE | 2019-03-24 13:01 | SOAPPROG ---
SOAP Progress Note Assessment/Plan: Assessment: Cerebrovascular accident, posterior left internal capsule, with dense right hemiparesis. * Initial functional independence measure is 33 on 03/24/2019. Moderate to maximal assistance for bed mobility. Transfer requires moderate assist of 2 people with the Mai study or maximal assist of 2 people for front wheeled walker. Cues to maintain midline. Lower body dressing was done supine with maximal assistance. Upper body dressing required maximal assistance. Grooming and hygiene were done with setup and minimal assistance, seated. Bathing, seated in shower, required maximal assistance. * Continue PT and OT to optimize mobility and activities of daily living toward the minimal to moderate assist level from wheelchair. Aphasia and cognitive impairment, with a history of dementia. * Significant impairment of memory including working and remote memory. Global cognitive impairment. * Phonemic > semantic paraphaias in his speech. Content is quite scant. Pt requires cues to facilitate expression of his intent and message. * Continue WELDER FABRICATOR. Dysphagia. Continuing dysphagia 2 texture with nectar thick liquids. Beginning trials of thin liquids. * Continue WELDER FABRICATOR. Urinary tract infection with encephalopathy. He has been clearing. He is on cephalexin. This will be continued for a total of 7 days of antibiotic treatment, through 03/26/2019. Secondary prevention of cerebrovascular accident. Continue aspirin, clopidogrel , blood pressure control, and control of dyslipidemia. Hypertension. Continue amlodipine. Dyslipidemia. Continue atorvastatin. History of encephalopathy. Continue melatonin. Continue p.r.n. quetiapine. Constipation. He had a large bowel movement several days ago, but not since. Will schedule senna starting 03/24/2019.. Benign prostatic hyperplasia. Continue tamsulosin. He had bladder scanning in the hospital with a postvoid residual of 31 mL. Has had high residuals on the rehabilitation unit. Consider increasing tamsulosin. Await resolution of constipation. Coronary artery disease. Will benefit from the same secondary prevention as CVA. History of atrial fibrillation. No dysrhythmia has been noted at [facility] or throughout his stay at [facility]. We will consider obtaining further records. Per review of what is available currently, the risk of fall and bleed appear to outweigh the risk of CVA. However, now he is status post CVA with a CHADS2-VASc score of 5, indicating a stroke risk of 7% to 10% approximately. HAS-BLED score is 4, indicating 8.9% risk of bleed. He is relatively protected on dual-antiplatelet therapy plus enoxaparin at present. We will defer further decisions regarding anticoagulation at present. Prophylaxis. Continue enoxaparin as he has dense hemiparesis. Unless his mobility is improved, he likely will need DVT prophylaxis for as long as 6 weeks or more. DISPOSITION: Attended staffing, 15 min. Discussed with case management, dietitian, nursing, PT, OT, WELDER FABRICATOR. Goal is to reduce burden of care towards eventual discharge to long-term facility or [facility] with assistance. Possibility of discharge to same facility as his . Discharge date set for . Followup. His primary care provider is Dr. Poncho Alejandro. He should consider a Cardiology followup as an outpatient for long-term rhythm monitoring to rule out atrial fibrillation. Per hospital discharge summary, Cardiology's recommendation was to consider resuming anticoagulation 2 weeks after occurrence of a stroke, which was 03/10/2019. 03/24/19 12:49 Subjective: No complaints. Slept well. No fevers or chills. No cough or dyspnea. No dysuria. Working with PT and OT. Objective: Vital Signs Temp Pulse Resp BP Pulse Ox 36.8 C 55 L 16 129/84 H 93 03/24/19 07:21 03/24/19 07:21 03/24/19 07:21 03/24/19 07:21 03/24/19 07:21 Laboratory Results 03/22/19 05:17 03/22/19 05:17 03/23/19 03/24/19 03/25/19 05:59 05:59 05:59 Intake Total 850 1070 750 Output Total 800 0 Balance 50 1070 750 - Time Spent With Patient Time Spent With Patient: Greater than 35 min floor time today, including more than 50% of time in coordination of care during staffing meeting, and counseling patient. Physical Exam - Physical Exam General Appearance: WD/WN, alert, no apparent distress Respiratory: normal breath sounds, No crackles, No rhonchi, No wheezing Cardiac/Chest: regular rate, rhythm, No edema, No diastolic murmur, No systolic murmur Skin: normal color, warm/dry Neuro/Psych: alert, normal mood/affect, oriented x 3, motor weakness (Left upper extremity), cognition abnormalities (Stimulus bound, poor attention. Perseverative.) ICD10 Worksheet Patient Problems: Problems Problem Status Onset CVA (cerebral vascular accident) Acute Syncope Acute
[2019-03-24] MEDS: ENOXAPARIN 40 MG/0.4 ML SYR SC SCH (16:55)
[2019-03-24] MEDS: ATORVASTATIN CALCIUM 40 MG TAB PO SCH (16:55)
[2019-03-24] MEDS: MELATONIN 3 MG TAB PO SCH (20:37)
[2019-03-24] MEDS ORDERED: SENNOSIDES 17.6 MG/10 ML UDL PO SCH (21:00)
[2019-03-24] MEDS: SENNOSIDES 1 TAB PO SCH (21:32)
[2019-03-25] MEDS: SENNOSIDES 1 TAB PO SCH ×2 (08:07→20:35)
[2019-03-25] MEDS: ASPIRIN 81 MG CHEWABLE TAB PO SCH (08:07)
[2019-03-25] MEDS: CEPHALEXIN 500 MG CAP PO SCH ×2 (08:07→20:35)
[2019-03-25] MEDS: TAMSULOSIN HCL 0.4 MG CAP PO SCH (08:07)
[2019-03-25] MEDS: CLOPIDOGREL BISULFATE 75 MG TAB PO SCH (08:07)
--- NOTE | 2019-03-25 11:32 | SOAPPROG ---
SOAP Progress Note Assessment/Plan: Assessment: Cerebrovascular accident, posterior left internal capsule, with dense right hemiparesis. * Initial functional independence measure is 33 on 03/24/2019. Moderate to maximal assistance for bed mobility. Transfer requires moderate assist of 2 people with the Mai study or maximal assist of 2 people for front wheeled walker. Cues to maintain midline. Lower body dressing was done supine with maximal assistance. Upper body dressing required maximal assistance. Grooming and hygiene were done with setup and minimal assistance, seated. Bathing, seated in shower, required maximal assistance. * Continue PT and OT to optimize mobility and activities of daily living toward the minimal to moderate assist level from wheelchair. Aphasia and cognitive impairment, with a history of dementia. * Significant impairment of memory including working and remote memory. Global cognitive impairment. * Phonemic > semantic paraphaias in his speech. Content is quite scant. Pt requires cues to facilitate expression of his intent and message. * Continue ENGINE LATHE OPERATOR. Dysphagia. Continuing dysphagia 2 texture with nectar thick liquids. Beginning trials of thin liquids. * Continue ENGINE LATHE OPERATOR. Urinary tract infection with encephalopathy. He has been clearing. He is on cephalexin. This will be continued for a total of 7 days of antibiotic treatment, through 03/26/2019. Secondary prevention of cerebrovascular accident. Continue aspirin, clopidogrel , blood pressure control, and control of dyslipidemia. Hypertension. Previously on amlodipine and isosorbide, currently on no medications. Blood pressure is borderline elevated for secondary prevention, though sometimes is below threshold. Recent syncopal episode was associated with very low blood pressure and systolic of 60. Continue to monitor. Consider resumption of amlodipine. Dyslipidemia. Continue atorvastatin. History of encephalopathy. Continue melatonin. Continue p.r.n. quetiapine. * Appears more awake and attentive, 03/25/2019. Constipation. He had a large bowel movement several days ago, but not since. Scheduled senna starting 03/24/2019.. Benign prostatic hyperplasia and urinary incontinence. Continue tamsulosin. He had bladder scanning in the hospital with a postvoid residual of 31 mL. * Has had high residuals on the rehabilitation unit but well below the threshold for catheterization.. * Consider increasing tamsulosin. Await resolution of constipation. Coronary artery disease. Will benefit from the same secondary prevention as CVA. History of atrial fibrillation. No dysrhythmia has been noted at [facility] or throughout his stay at [facility]. We will consider obtaining further records. Per review of what is available currently, the risk of fall and bleed appear to outweigh the risk of CVA. However, now he is status post CVA with a CHADS2-VASc score of 5, indicating a stroke risk of 7% to 10% approximately. HAS-BLED score is 4, indicating 8.9% risk of bleed. He is relatively protected on dual-antiplatelet therapy plus enoxaparin at present. Will defer further decisions regarding anticoagulation at present. Prophylaxis. Continue enoxaparin as he has dense hemiparesis. Unless his mobility is improved, he likely will need DVT prophylaxis for as long as 6 weeks or more. DISPOSITION: Attended staffing, 15 min, 03/24/2019. Discussed with case management, dietitian, nursing, PT, OT, ENGINE LATHE OPERATOR. Goal is to reduce burden of care towards eventual discharge to care home facility or [facility] with assistance. Possibility of discharge to same facility as his . Discharge date set for . Followup. His primary care provider is Dr. Poncho Alejandro. He should consider a Cardiology followup as an outpatient for long-term rhythm monitoring to rule out atrial fibrillation. Per hospital discharge summary, Cardiology's recommendation was to consider resuming anticoagulation 2 weeks after occurrence of a stroke, which was 03/10/2019. 03/25/19 11:24 Subjective: No complaints today. Slept well. Not in pain. No cough or dyspnea. No fevers or chills. Nurse reports urinary incontinence. He reports that he is aware of urge to urinate. Objective: Vital Signs Temp Pulse Resp BP Pulse Ox 36.8 C 84 18 141/85 H 96 03/25/19 08:00 03/25/19 08:00 03/25/19 08:00 03/25/19 08:00 03/25/19 08:00 Laboratory Results 03/22/19 05:17 03/22/19 05:17 03/24/19 03/25/19 03/26/19 05:59 05:59 05:59 Intake Total 1070 1410 240 Output Total 0 Balance 1070 1410 240 Physical Exam - Physical Exam General Appearance: WD/WN, alert, no apparent distress Respiratory: normal breath sounds, No crackles, No rhonchi, No wheezing Cardiac/Chest: regular rate, rhythm, edema (1+ right pretibial), No diastolic murmur, No systolic murmur Skin: normal color, warm/dry Neuro/Psych: alert, normal mood/affect, oriented x 3, motor weakness (Right upper and lower extremities) ICD10 Worksheet Patient Problems: Problems Problem Status Onset CVA (cerebral vascular accident) Acute Syncope Acute
--- NOTE | 2019-03-25 11:33 | PDOREHIP ---
Admission [facility] - Admission - 3 Day Assessment Period Admission Date/Day 1: 03/21/19 Day 2: 03/22/19 Day 3: 03/23/19 - Active Diagnoses Comorbidities and Co-existing Conditions at Admission: 69905. None of the Above - Skin Conditions Unhealed Pressure Ulcer (1 or more/Stage 1 or >)-Admission: 0. No # Stage 1 Pressure Ulcers-Admission: 0 # Stage 2 Pressure Ulcers-Admission: 0 # Stage 3 Pressure Ulcers-Admission: 0 # Stage 4 Pressure Ulcers-Admission: 0 # Unstageable Pressure Ulcers (Non-remove Dress)-Admission: 0 # Unstageable Pressure Ulcers (Slough/Eschar)-Admission: 0 # Unstageable Pressure Ulcers (Deep Tissue Injury)-Admission: 0 Discharge [facility] - Discharge - 3 Day Assessment Period 2 Days Prior to Anticipated Discharge Date: 04/09/19 1 Day Prior to Anticipated Discharge Date: 04/10/19 Anticipated Discharge Date: 04/11/19
[2019-03-25] MEDS: BISACODYL 10 MG SUPP PR PRN (14:06)
[2019-03-25] MEDS: ENOXAPARIN 40 MG/0.4 ML SYR SC SCH (16:57)
[2019-03-25] MEDS: ATORVASTATIN CALCIUM 40 MG TAB PO SCH (16:57)
[2019-03-25] MEDS: MELATONIN 3 MG TAB PO SCH (20:35)
[2019-03-26] MEDS: CEPHALEXIN 500 MG CAP PO SCH (08:25)
[2019-03-26] MEDS: TAMSULOSIN HCL 0.4 MG CAP PO SCH (08:26)
[2019-03-26] MEDS: ASPIRIN 81 MG CHEWABLE TAB PO SCH (08:26)
[2019-03-26] MEDS: SENNOSIDES 1 TAB PO SCH ×2 (08:26→20:28)
[2019-03-26] MEDS: CLOPIDOGREL BISULFATE 75 MG TAB PO SCH (08:26)
--- NOTE | 2019-03-26 11:45 | SOAPPROG ---
SOAP Progress Note Assessment/Plan: Assessment: Cerebrovascular accident, posterior left internal capsule, with dense right hemiparesis. * Initial functional independence measure is 33 on 03/24/2019. Moderate to maximal assistance for bed mobility. Transfer requires moderate assist of 2 people with the Mai Stedy or maximal assist of 2 people for front wheeled walker. Cues to maintain midline. Lower body dressing was done supine with maximal assistance. Upper body dressing required maximal assistance. Grooming and hygiene were done with setup and minimal assistance, seated. Bathing, seated in shower, required maximal assistance. * Continue PT and OT to optimize mobility and activities of daily living toward the minimal to moderate assist level from wheelchair. Aphasia and cognitive impairment, with a history of dementia. * Significant impairment of memory including working and remote memory. Global cognitive impairment. * Phonemic > semantic paraphaias in his speech. Content is quite scant. Pt requires cues to facilitate expression of his intent and message. * Continue PROFESSOR OF BUSINESS ADMINISTRATION. Dysphagia. Continuing dysphagia 2 texture with nectar thick liquids. Beginning trials of thin liquids. * Continue PROFESSOR OF BUSINESS ADMINISTRATION. Urinary tract infection with encephalopathy. He has been clearing. He is on cephalexin. This will be continued for a total of 7 days of antibiotic treatment, through 03/26/2019. Secondary prevention of cerebrovascular accident. Continue aspirin, clopidogrel , blood pressure control, and control of dyslipidemia. Hypertension. Previously on amlodipine and isosorbide, currently on no medications. Blood pressure is borderline elevated for secondary prevention, though sometimes is below threshold. Recent syncopal episode was associated with very low blood pressure and systolic of 60. Continue to monitor. Consider resumption of amlodipine. Dyslipidemia. Continue atorvastatin. History of encephalopathy. Continue melatonin. Continue p.r.n. quetiapine. * Appears more awake and attentive since 03/25/2019. Constipation. He had a large bowel movement several days ago, but not since. Scheduled senna starting 03/24/2019. Had bisacofyl supository 03/25/2019 with good result. Continue to monitor. Benign prostatic hyperplasia and urinary incontinence. Continue tamsulosin. He had bladder scanning in the hospital with a postvoid residual of 31 mL. * Has had high residuals on the rehabilitation unit but well below the threshold for catheterization.. * Consider increasing tamsulosin. Await resolution of constipation. Coronary artery disease. Will benefit from the same secondary prevention as CVA. History of atrial fibrillation. No dysrhythmia has been noted at [facility] or throughout his stay at [facility]. * Discussed with her primary care office, 03/26/2019. Anticoagulation was discontinued a during a prior stay at [facility] in January of 2019. Will get records from that stay. * Status post CVA his CHADS2-VASc score is 5, indicating a stroke risk of 7% to 10% approximately. HAS-BLED score is 4, indicating 8.9% risk of bleed. He is relatively protected on dual-antiplatelet therapy plus enoxaparin at present. Prophylaxis. Continue enoxaparin as he has dense hemiparesis. Unless his mobility is improved, he likely will need DVT prophylaxis for as long as 6 weeks or more. DISPOSITION: Attended staffing, 15 min, 03/24/2019. Discussed with case management, dietitian, nursing, PT, OT, PROFESSOR OF BUSINESS ADMINISTRATION. Goal is to reduce burden of care towards eventual discharge to [facility] facility or [facility] with assistance. Possibility of discharge to same facility as his . Discharge date set for . Followup. His primary care provider is Dr. Poncho Alejandro. He should consider a Cardiology followup as an outpatient for long-term rhythm monitoring to rule out atrial fibrillation. Per hospital discharge summary, Cardiology's recommendation was to consider resuming anticoagulation 2 weeks after occurrence of a stroke, which was 03/10/2019. 03/26/19 16:27 Subjective: No complaints. Sleeping well. Not in pain. No cough or dyspnea, no fevers or chills. Objective: Vital Signs Temp Pulse Resp BP Pulse Ox 36.8 C 67 15 159/90 H 93 03/26/19 08:12 03/26/19 08:12 03/26/19 08:12 03/26/19 08:12 03/26/19 08:12 Laboratory Results 03/22/19 05:17 03/22/19 05:17 03/25/19 03/26/19 03/27/19 05:59 05:59 05:59 Intake Total 1410 540 240 Balance 1410 540 240 Physical Exam - Physical Exam General Appearance: WD/WN, alert, no apparent distress Respiratory: normal breath sounds, No crackles, No rhonchi, No wheezing Cardiac/Chest: regular rate, rhythm, No edema, No diastolic murmur, No systolic murmur Skin: normal color, warm/dry Neuro/Psych: alert, normal mood/affect, oriented x 3, motor weakness (Left upper and lower extremities) ICD10 Worksheet Patient Problems: Problems Problem Status Onset CVA (cerebral vascular accident) Acute Syncope Acute
[2019-03-26] MEDS: ENOXAPARIN 40 MG/0.4 ML SYR SC SCH (17:43)
[2019-03-26] MEDS: ATORVASTATIN CALCIUM 40 MG TAB PO SCH (17:43)
[2019-03-26] MEDS: MELATONIN 3 MG TAB PO SCH (20:15)
[2019-03-27] MEDS: SENNOSIDES 1 TAB PO SCH ×2 (08:24→21:52)
[2019-03-27] MEDS: TAMSULOSIN HCL 0.4 MG CAP PO SCH (08:24)
[2019-03-27] MEDS: ASPIRIN 81 MG CHEWABLE TAB PO SCH (08:24)
[2019-03-27] MEDS: CLOPIDOGREL BISULFATE 75 MG TAB PO SCH (08:24)
--- NOTE | 2019-03-27 11:17 | SOAPPROG ---
SOAP Progress Note Assessment/Plan: Assessment: Cerebrovascular accident, posterior left internal capsule, with dense right hemiparesis. * Initial functional independence measure is 33 on 03/24/2019. Moderate to maximal assistance for bed mobility. Transfer requires moderate assist of 2 people with the Mai Stedy or maximal assist of 2 people for front wheeled walker. Cues to maintain midline. Lower body dressing was done supine with maximal assistance. Upper body dressing required maximal assistance. Grooming and hygiene were done with setup and minimal assistance, seated. Bathing, seated in shower, required maximal assistance. * As of 03/27/2019, progressing to sliding board transfers, still needing moderate assist. * Continue PT and OT to optimize mobility and activities of daily living toward the minimal to moderate assist level from wheelchair. Aphasia and cognitive impairment, with a history of dementia. * Significant impairment of memory including working and remote memory. Global cognitive impairment. * Phonemic > semantic paraphaias in his speech. Content is quite scant. Pt requires cues to facilitate expression of his intent and message. * Continue QUALITY IMPROVEMENT ANALYST. Dysphagia. * Advancing to dysphagia 2 diet with thin liquids, 03/27/2019. * Continue QUALITY IMPROVEMENT ANALYST. Secondary prevention of cerebrovascular accident. Continue aspirin, clopidogrel , blood pressure control, and control of dyslipidemia. * Initiate SSRI high for depressed mood as well as neurologic recovery, 2018, with escitalopram 10 mg q.day. Hypertension. Previously on amlodipine and isosorbide, currently on no medications. Blood pressure is borderline elevated for secondary prevention, though sometimes is below threshold. Recent syncopal episode was associated with very low blood pressure and systolic of 60. Continue to monitor. Consider resumption of amlodipine. Dyslipidemia. Continue atorvastatin. History of encephalopathy. Continue melatonin. Continue p.r.n. quetiapine. * Appears more awake and attentive since 03/25/2019. Constipation. Scheduled senna starting 03/24/2019. Had bisacodyl suppository with good result. * Schedule polyethylene glycol starting 03/27/2019. Continue to monitor. Benign prostatic hyperplasia and urinary incontinence. Continue tamsulosin. He had bladder scanning in the hospital with a postvoid residual of 31 mL. * Has had high residuals on the rehabilitation unit but well below the threshold for catheterization.. * Consider increasing tamsulosin. Await resolution of constipation. Urinary tract infection with encephalopathy. He has been clearing. Treated with cephalexin for a total of 7 days of antibiotic treatment, through 2018. Coronary artery disease. Will benefit from the same secondary prevention as CVA. History of atrial fibrillation. No dysrhythmia has been noted at [facility] or throughout his stay at [facility]. * Discussed with primary care office, 03/26/2019. Anticoagulation was discontinued a during a prior stay at [facility] in January of 2019. Will get records from that stay. * Status post CVA his CHADS2-VASc score is 5, indicating a stroke risk of 7% to 10% approximately. HAS-BLED score is 4, indicating 8.9% risk of bleed. He is relatively protected on dual-antiplatelet therapy plus enoxaparin at present. Prophylaxis. Continue enoxaparin as he has dense hemiparesis. Unless his mobility improves, he likely will need DVT prophylaxis for as long as 6 weeks or more. DISPOSITION: Attended staffing, 15 min, 03/24/2019. Discussed with case management, dietitian, nursing, PT, OT, QUALITY IMPROVEMENT ANALYST. Goal is to reduce burden of care towards eventual discharge to prison facility or [facility] with assistance. Possibility of discharge to same facility as his . Discharge date set for . Followup. His primary care provider is Dr. Poncho Alejandro. He should consider a Cardiology followup as an outpatient for long-term rhythm monitoring to rule out atrial fibrillation. Per hospital discharge summary, Cardiology's recommendation was to consider resuming anticoagulation 2 weeks after occurrence of a stroke, which was 03/10/2019. 03/27/19 11:11 Subjective: Had episode of sadness after therapies today. Nurse helped him call his and he feels better after speaking to her. He denies depression and would prefer to not taking antidepressant. He would however taking antidepressant if it would help his neurologic recovery. Otherwise without complaints. Sleeping well. Not in pain. No cough or dyspnea, no fevers or chills. Objective: Vital Signs Temp Pulse Resp BP Pulse Ox 36.6 C 66 16 100/64 93 03/27/19 08:34 03/27/19 08:34 03/27/19 08:34 03/27/19 08:34 03/27/19 08:34 Laboratory Results 03/22/19 05:17 03/22/19 05:17 03/26/19 03/27/19 03/28/19 05:59 05:59 05:59 Intake Total 540 960 240 Balance 540 960 240 Physical Exam - Physical Exam General Appearance: WD/WN, alert, no apparent distress Respiratory: normal breath sounds, No crackles, No rhonchi, No wheezing Cardiac/Chest: regular rate, rhythm, No edema, No diastolic murmur, No systolic murmur Skin: normal color, warm/dry Neuro/Psych: alert, normal mood/affect, motor weakness (Left upper extremity flaccid paralysis) ICD10 Worksheet Patient Problems: Problems Problem Status Onset CVA (cerebral vascular accident) Acute Syncope Acute
[2019-03-27] MEDS ORDERED: ESCITALOPRAM OXALATE 10 MG TAB PO SCH (11:30)
[2019-03-27] MEDS: ENOXAPARIN 40 MG/0.4 ML SYR SC SCH (16:47)
[2019-03-27] MEDS: ATORVASTATIN CALCIUM 40 MG TAB PO SCH (17:06)
[2019-03-27] MEDS: ONDANSETRON DISINTEGRATING 4 MG TAB PO PRN (17:10)
[2019-03-27] MEDS: MELATONIN 3 MG TAB PO SCH (21:52)
[2019-03-28] MEDS: POLYETHYLENE GLYCOL 3350 17 GM PKT PO SCH (09:04)
[2019-03-28] MEDS: SENNOSIDES 1 TAB PO SCH ×2 (09:04→20:57)
[2019-03-28] MEDS: CLOPIDOGREL BISULFATE 75 MG TAB PO SCH (09:04)
[2019-03-28] MEDS: TAMSULOSIN HCL 0.4 MG CAP PO SCH (09:05)
[2019-03-28] MEDS: MODAFINIL 100 MG TAB PO SCH (09:05)
[2019-03-28] MEDS: ASPIRIN 81 MG CHEWABLE TAB PO SCH (09:06)
--- NOTE | 2019-03-28 12:53 | SOAPPROG ---
SOAP Progress Note Assessment/Plan: Assessment: Cerebrovascular accident, posterior left internal capsule, with dense right hemiparesis. * Initial functional independence measure is 33 on 03/24/2019. Moderate to maximal assistance for bed mobility. Transfer requires moderate assist of 2 people with the Mai Stedy or maximal assist of 2 people for front wheeled walker. Cues to maintain midline. Lower body dressing was done supine with maximal assistance. Upper body dressing required maximal assistance. Grooming and hygiene were done with setup and minimal assistance, seated. Bathing, seated in shower, required maximal assistance. * As of 03/27/2019, progressing to sliding board transfers, still needing moderate assist. * OT reports increased tone left upper and lower extremities, 03 28 2019. Will cautiously start low-dose baclofen at 5 mg twice daily with breakfast and dinner. Continue to monitor. * Continue PT and OT to optimize mobility and activities of daily living toward the minimal to moderate assist level from wheelchair. Aphasia and cognitive impairment, with a history of dementia. * Significant impairment of memory including working and remote memory. Global cognitive impairment. * Phonemic > semantic paraphaias in his speech. Content is quite scant. Pt requires cues to facilitate expression of his intent and message. * Continue TALENT SCOUT. Dysphagia. * Advancing to dysphagia 2 diet with thin liquids, 03/27/2019. * Continue TALENT SCOUT. Episodes of unresponsiveness. Head CT and CT angiography 03/27/2019 with no changes. Labs are normal. Curbside discussion with neurologist right possibility of sleep attacks; symptomatology is not consistent with seizures. * Initiated modafinil 50 mg q.day on 03/28/2019. Continue to monitor. Secondary prevention of cerebrovascular accident. Continue aspirin, clopidogrel , blood pressure control, and control of dyslipidemia. * Initiate SSRI high for depressed mood as well as neurologic recovery, 2018, with escitalopram 10 mg q.day. Hypertension. Previously on amlodipine and isosorbide, currently on no medications. Blood pressure is borderline elevated for secondary prevention, though sometimes is below threshold. Recent syncopal episode was associated with very low blood pressure and systolic of 60. Continue to monitor. Consider resumption of amlodipine. Dyslipidemia. Continue atorvastatin. History of encephalopathy. Continue melatonin. Continue p.r.n. quetiapine. * Appears more awake and attentive since 03/25/2019. Constipation. Scheduled senna starting 03/24/2019. Had bisacodyl suppository with good result. * Schedule polyethylene glycol starting 03/27/2019. Continue to monitor. Benign prostatic hyperplasia and urinary incontinence. Continue tamsulosin. He had bladder scanning in the hospital with a postvoid residual of 31 mL. * Has had high residuals on the rehabilitation unit but well below the threshold for catheterization.. * Consider increasing tamsulosin. Await resolution of constipation. Urinary tract infection with encephalopathy. He has been clearing. Treated with cephalexin for a total of 7 days of antibiotic treatment, through 2018. Coronary artery disease. Will benefit from the same secondary prevention as CVA. History of atrial fibrillation. No dysrhythmia has been noted at [facility] or throughout his stay at [facility]. * Discussed with primary care office, 03/26/2019. Anticoagulation was discontinued a during a prior stay at [facility] in January of 2019. Will get records from that stay. * Status post CVA his CHADS2-VASc score is 5, indicating a stroke risk of 7% to 10% approximately. HAS-BLED score is 4, indicating 8.9% risk of bleed. He is relatively protected on dual-antiplatelet therapy plus enoxaparin at present. Prophylaxis. Continue enoxaparin as he has dense hemiparesis. Unless his mobility improves, he likely will need DVT prophylaxis for as long as 6 weeks or more. DISPOSITION: Attended staffing, 15 min, 03/24/2019. Discussed with case management, dietitian, nursing, PT, OT, TALENT SCOUT. Goal is to reduce burden of care towards eventual discharge to correction facility or [facility] with assistance. Possibility of discharge to same facility as his . Discharge date set for . Followup. His primary care provider is Dr. Poncho Alejandro. He should consider a Cardiology followup as an outpatient for long-term rhythm monitoring to rule out atrial fibrillation. Per hospital discharge summary, Cardiology's recommendation was to consider resuming anticoagulation 2 weeks after occurrence of a stroke, which was 03/10/2019. 03/27/19 11:11 03/28/19 12:51 Subjective: No complaints. Slept well. Not in pain. No cough or dyspnea, no fevers or chills. Does not feel anxious this morning. Objective: Vital Signs Temp Pulse Resp BP Pulse Ox 36.5 C 66 18 127/60 H 93 03/28/19 11:45 03/28/19 11:45 03/28/19 11:45 03/28/19 11:45 03/28/19 11:45 Laboratory Results 03/22/19 05:17 03/22/19 05:17 03/27/19 03/28/19 03/29/19 05:59 05:59 05:59 Intake Total 960 360 360 Output Total 350 Balance 960 10 360 Physical Exam - Physical Exam General Appearance: WD/WN, alert, no apparent distress Respiratory: normal breath sounds, No crackles, No rhonchi, No wheezing Cardiac/Chest: regular rate, rhythm, No diastolic murmur, No systolic murmur Skin: normal color, warm/dry Neuro/Psych: alert, normal mood/affect ICD10 Worksheet Patient Problems: Problems Problem Status Onset CVA (cerebral vascular accident) Acute Syncope Acute
[2019-03-28] MEDS: ENOXAPARIN 40 MG/0.4 ML SYR SC SCH (15:14)
[2019-03-28] MEDS: ATORVASTATIN CALCIUM 40 MG TAB PO SCH (17:36)
[2019-03-28] MEDS: BACLOFEN 10 MG TAB PO SCH (17:36)
[2019-03-28] MEDS: MELATONIN 3 MG TAB PO SCH (20:57)
[2019-03-29] MEDS: CLOPIDOGREL BISULFATE 75 MG TAB PO SCH (08:47)
[2019-03-29] MEDS: POLYETHYLENE GLYCOL 3350 17 GM PKT PO SCH (08:47)
[2019-03-29] MEDS: SENNOSIDES 1 TAB PO SCH ×2 (08:47→21:35)
[2019-03-29] MEDS: BACLOFEN 10 MG TAB PO SCH ×2 (08:48→18:13)
[2019-03-29] MEDS: MODAFINIL 100 MG TAB PO SCH (08:48)
[2019-03-29] MEDS: ASPIRIN 81 MG CHEWABLE TAB PO SCH (08:49)
[2019-03-29] MEDS: TAMSULOSIN HCL 0.4 MG CAP PO SCH (08:49)
--- NOTE | 2019-03-29 16:18 | HOSPPROG ---
Hospitalist Progress Note Assessment/Plan: Cerebrovascular accident, posterior left internal capsule, with dense right hemiparesis. * Initial functional independence measure is 33 on 03/24/2019. Moderate to maximal assistance for bed mobility. Transfer requires moderate assist of 2 people with the Mai Stedy or maximal assist of 2 people for front wheeled walker. Cues to maintain midline. Lower body dressing was done supine with maximal assistance. Upper body dressing required maximal assistance. Grooming and hygiene were done with setup and minimal assistance, seated. Bathing, seated in shower, required maximal assistance. * As of 03/27/2019, progressing to sliding board transfers, still needing moderate assist. * OT reports increased tone left upper and lower extremities, 03 28 2019. Will cautiously start low-dose baclofen at 5 mg twice daily with breakfast and dinner. Continue to monitor. * Continue PT and OT to optimize mobility and activities of daily living toward the minimal to moderate assist level from wheelchair. s/p fall 03/29 * CT head negative * will not keep in wheelchair in room * roll belt Aphasia and cognitive impairment, with a history of dementia. * Significant impairment of memory including working and remote memory. Global cognitive impairment. * Phonemic > semantic paraphaias in his speech. Content is quite scant. Pt requires cues to facilitate expression of his intent and message. 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 Dysphagia. * Advancing to dysphagia 2 diet with thin liquids, 03/27/2019. 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 Episodes of unresponsiveness. Head CT and CT angiography 03/27/2019 with no changes. Labs are normal. Curbside discussion with neurologist right possibility of sleep attacks; symptomatology is not consistent with seizures. * Initiated modafinil 50 mg q.day on 03/28/2019. Continue to monitor. Secondary prevention of cerebrovascular accident. Continue aspirin, clopidogrel , blood pressure control, and control of dyslipidemia. * Initiate SSRI high for depressed mood as well as neurologic recovery, 2018, with escitalopram 10 mg q.day. Hypertension. Previously on amlodipine and isosorbide, currently on no medications. Blood pressure is borderline elevated for secondary prevention, though sometimes is below threshold. Recent syncopal episode was associated with very low blood pressure and systolic of 60. Continue to monitor. Consider resumption of amlodipine. * bp looks good Dyslipidemia. Continue atorvastatin. History of encephalopathy. Continue melatonin. Continue p.r.n. quetiapine. * Appears more awake and attentive since 03/25/2019. Constipation. Scheduled senna starting 03/24/2019. Had bisacodyl suppository with good result. * Schedule polyethylene glycol starting 03/27/2019. Continue to monitor. Benign prostatic hyperplasia and urinary incontinence. Continue tamsulosin. He had bladder scanning in the hospital with a postvoid residual of 31 mL. * Has had high residuals on the rehabilitation unit but well below the threshold for catheterization.. * Consider increasing tamsulosin. Await resolution of constipation. Urinary tract infection with encephalopathy. He has been clearing. Treated with cephalexin for a total of 7 days of antibiotic treatment, through 2018. Coronary artery disease. Will benefit from the same secondary prevention as CVA. History of atrial fibrillation. No dysrhythmia has been noted at [facility] or throughout his stay at [facility]. * Discussed with primary care office, 03/26/2019. Anticoagulation was discontinued a during a prior stay at [facility] in January of 2019. Will get records from that stay. * Status post CVA his CHADS2-VASc score is 5, indicating a stroke risk of 7% to 10% approximately. HAS-BLED score is 4, indicating 8.9% risk of bleed. He is relatively protected on dual-antiplatelet therapy plus enoxaparin at present. Prophylaxis. Continue enoxaparin as he has dense hemiparesis. Unless his mobility improves, he likely will need DVT prophylaxis for as long as 6 weeks or more. Subjective: Slipped out of wheelchair and fell. doesn't remember hitting head. no pain now. at baseline mental satus. CT head nl Objective: Vital Signs Temp Pulse Resp BP Pulse Ox 36.9 C 86 18 142/74 H 90 L 03/29/19 06:30 03/29/19 15:05 03/29/19 15:05 03/29/19 15:05 03/29/19 15:05 Laboratory Results 03/22/19 05:17 03/22/19 05:17 03/28/19 03/29/19 03/30/19 05:59 05:59 05:59 Intake Total 360 1440 Output Total 350 500 Balance 10 940 - Physical Exam Constitutional: no apparent distress, appears nourished, not in pain Eyes: anicteric sclera, EOMI Cardiovascular: regular rate and rhythym Respiratory: no respiratory distress Gastrointestinal: normoactive bowel sounds, soft, non-tender abdomen, no palpable masses Skin: warm Neurologic: AAOx3, other (right weakness) Psychiatric: interacting appropriately, not anxious, not encephalopathic, thought process linear ICD10 Worksheet Patient Problems: Problems Problem Status Onset CVA (cerebral vascular accident) Acute Syncope Acute
[2019-03-29] MEDS: ENOXAPARIN 40 MG/0.4 ML SYR SC SCH (17:00)
[2019-03-29] MEDS: ATORVASTATIN CALCIUM 40 MG TAB PO SCH (18:13)
[2019-03-29] MEDS: MELATONIN 3 MG TAB PO SCH (21:35)
--- NOTE | 2019-03-30 08:46 | HOSPPROG ---
Hospitalist Progress Note Assessment/Plan: Cerebrovascular accident, posterior left internal capsule, with dense right hemiparesis. * Initial functional independence measure is 33 on 03/24/2019. Moderate to maximal assistance for bed mobility. Transfer requires moderate assist of 2 people with the Mai Stedy or maximal assist of 2 people for front wheeled walker. Cues to maintain midline. Lower body dressing was done supine with maximal assistance. Upper body dressing required maximal assistance. Grooming and hygiene were done with setup and minimal assistance, seated. Bathing, seated in shower, required maximal assistance. * As of 03/27/2019, progressing to sliding board transfers, still needing moderate assist. * OT reports increased tone left upper and lower extremities, 03 28 2019. Will cautiously start low-dose baclofen at 5 mg twice daily with breakfast and dinner. Continue to monitor. * Continue PT and OT to optimize mobility and activities of daily living toward the minimal to moderate assist level from wheelchair. s/p fall 03/29 * CT head negative * will not keep in wheelchair in room * roll belt * little more groggy this morning - will watch closely today Aphasia and cognitive impairment, with a history of dementia. * Significant impairment of memory including working and remote memory. Global cognitive impairment. * Phonemic > semantic paraphaias in his speech. Content is quite scant. Pt requires cues to facilitate expression of his intent and message. 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 Dysphagia. * Advancing to dysphagia 2 diet with thin liquids, 03/27/2019. 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 Episodes of unresponsiveness. Head CT and CT angiography 03/27/2019 with no changes. Labs are normal. Curbside discussion with neurologist right possibility of sleep attacks; symptomatology is not consistent with seizures. * Initiated modafinil 50 mg q.day on 03/28/2019. Continue to monitor. Secondary prevention of cerebrovascular accident. Continue aspirin, clopidogrel , blood pressure control, and control of dyslipidemia. * Initiate SSRI high for depressed mood as well as neurologic recovery, 2018, with escitalopram 10 mg q.day. Hypertension. Previously on amlodipine and isosorbide, currently on no medications. Blood pressure is borderline elevated for secondary prevention, though sometimes is below threshold. Recent syncopal episode was associated with very low blood pressure and systolic of 60. Continue to monitor. Consider resumption of amlodipine. * bp looks good Dyslipidemia. Continue atorvastatin. History of encephalopathy. Continue melatonin. Continue p.r.n. quetiapine. * Appears more awake and attentive since 03/25/2019. Constipation. Scheduled senna starting 03/24/2019. Had bisacodyl suppository with good result. * Schedule polyethylene glycol starting 03/27/2019. Continue to monitor. Benign prostatic hyperplasia and urinary incontinence. Continue tamsulosin. He had bladder scanning in the hospital with a postvoid residual of 31 mL. * Has had high residuals on the rehabilitation unit but well below the threshold for catheterization.. * Consider increasing tamsulosin. Await resolution of constipation. Urinary tract infection with encephalopathy. He has been clearing. Treated with cephalexin for a total of 7 days of antibiotic treatment, through 2018. Coronary artery disease. Will benefit from the same secondary prevention as CVA. History of atrial fibrillation. No dysrhythmia has been noted at [facility] or throughout his stay at [facility]. * Discussed with primary care office, 03/26/2019. Anticoagulation was discontinued a during a prior stay at [facility] in January of 2019. Will get records from that stay. * Status post CVA his CHADS2-VASc score is 5, indicating a stroke risk of 7% to 10% approximately. HAS-BLED score is 4, indicating 8.9% risk of bleed. He is relatively protected on dual-antiplatelet therapy plus enoxaparin at present. Prophylaxis. Continue enoxaparin as he has dense hemiparesis. Unless his mobility improves, he likely will need DVT prophylaxis for as long as 6 weeks or more. Subjective: didn't sleep that well. more groggy this morning. Objective: Vital Signs Temp Pulse Resp BP Pulse Ox 35.7 C L 57 L 12 126/62 H 97 03/30/19 07:47 03/30/19 07:47 03/30/19 07:47 03/30/19 07:47 03/30/19 07:47 Laboratory Results 03/22/19 05:17 03/22/19 05:17 03/29/19 03/30/19 03/31/19 05:59 05:59 05:59 Intake Total 1440 960 Output Total 500 400 Balance 940 560 - Physical Exam Constitutional: no apparent distress, appears nourished, not in pain Eyes: anicteric sclera, EOMI Cardiovascular: regular rate and rhythym Respiratory: no respiratory distress Skin: warm Neurologic: other (responsive but tired. ) ICD10 Worksheet Patient Problems: Problems Problem Status Onset CVA (cerebral vascular accident) Acute Syncope Acute
[2019-03-30] MEDS: CLOPIDOGREL BISULFATE 75 MG TAB PO SCH (09:13)
[2019-03-30] MEDS: MODAFINIL 100 MG TAB PO SCH (09:13)
[2019-03-30] MEDS: ASPIRIN 81 MG CHEWABLE TAB PO SCH (09:13)
[2019-03-30] MEDS: TAMSULOSIN HCL 0.4 MG CAP PO SCH (09:13)
[2019-03-30] MEDS: POLYETHYLENE GLYCOL 3350 17 GM PKT PO SCH (09:13)
[2019-03-30] MEDS: BACLOFEN 10 MG TAB PO SCH ×2 (09:13→17:36)
[2019-03-30] MEDS: SENNOSIDES 1 TAB PO SCH ×2 (09:13→22:13)
[2019-03-30] MEDS: ENOXAPARIN 40 MG/0.4 ML SYR SC SCH (16:21)
[2019-03-30] MEDS: ATORVASTATIN CALCIUM 40 MG TAB PO SCH (17:36)
[2019-03-30] MEDS: MELATONIN 3 MG TAB PO SCH (22:13)
[2019-03-31] MEDS: BACLOFEN 10 MG TAB PO SCH (08:54)
[2019-03-31] MEDS: POLYETHYLENE GLYCOL 3350 17 GM PKT PO SCH (08:59)
[2019-03-31] MEDS: MODAFINIL 100 MG TAB PO SCH (09:00)
[2019-03-31] MEDS: SENNOSIDES 1 TAB PO SCH ×2 (09:00→21:26)
[2019-03-31] MEDS: ASPIRIN 81 MG CHEWABLE TAB PO SCH (09:00)
[2019-03-31] MEDS: CLOPIDOGREL BISULFATE 75 MG TAB PO SCH (09:00)
[2019-03-31] MEDS: TAMSULOSIN HCL 0.4 MG CAP PO SCH (09:00)
--- NOTE | 2019-03-31 12:47 | SOAPPROG ---
SOAP Progress Note Assessment/Plan: Assessment: Cerebrovascular accident, posterior left internal capsule, with dense right hemiparesis. * Initial functional independence measure is 33 on 03/24/2019, decline to 32 as of 03/31/2019. Bed mobility required moderate assist of 2. Transfers with a Mai Stedy required moderate assist of 2. Lower body dressing supine in bed required maximal assist. Upper body dressing required maximal assist. Decreased initiation noted. Transferred with OT using sliding board and was noted to be impulsive and perseverative, requiring moderate to maximal assist. * OT reported increased tone left upper and lower extremities, 03/28/2019. Started low-dose baclofen at 5 mg twice daily with breakfast and dinner. With somnolence x2 days, will discontinue baclofen starting evening of 03/31/2019. * Continue PT and OT to optimize mobility and activities of daily living toward the minimal to moderate assist level from wheelchair. Aphasia and cognitive impairment, with a history of dementia. * Significant impairment of memory including working and remote memory. Global cognitive impairment. * Phonemic > semantic paraphaias in his speech. Content is quite scant. Pt requires cues to facilitate expression of his intent and message. 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 Dysphagia. * Advanced to dysphagia 3 diet with thin liquids. 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 Episodes of unresponsiveness. Head CT and CT angiography 03/27/2019 with no changes. Labs are normal. Curbside discussion with neurologist right possibility of sleep attacks; symptomatology is not consistent with seizures. * Initiated modafinil 50 mg q.day on 03/28/2019. Continue to monitor. Secondary prevention of cerebrovascular accident. Continue aspirin, clopidogrel , blood pressure control, and control of dyslipidemia. * Initiate SSRI high for depressed mood as well as neurologic recovery, 2018, with escitalopram 10 mg q.day. Discontinued when modafinil was initiated , 03/28/2019. Hypertension. Previously on amlodipine and isosorbide, currently on no medications. Blood pressure is borderline elevated for secondary prevention, though sometimes is below threshold. Recent syncopal episode was associated with very low blood pressure and systolic of 60. Continue to monitor. Consider resumption of amlodipine. Dyslipidemia. Continue atorvastatin. History of encephalopathy. Continue melatonin. Continue p.r.n. quetiapine. Constipation. Scheduled senna starting 03/24/2019. Had bisacodyl suppository with good result. * Schedule polyethylene glycol starting 03/27/2019. Continue to monitor. Benign prostatic hyperplasia and urinary incontinence. Continue tamsulosin. He had bladder scanning in the hospital with a postvoid residual of 31 mL. * Has had high residuals on the rehabilitation unit but well below the threshold for catheterization.. * Consider increasing tamsulosin. Await resolution of constipation. Urinary tract infection with encephalopathy. He has been clearing. Treated with cephalexin for a total of 7 days of antibiotic treatment, through 2018. Coronary artery disease. Will benefit from the same secondary prevention as CVA. History of atrial fibrillation. No dysrhythmia has been noted at [facility] or throughout his stay at [facility]. * Discussed with primary care office, 03/26/2019. Anticoagulation was discontinued a during a prior stay at [facility] in January of 2019. Will get records from that stay. * Status post CVA his CHADS2-VASc score is 5, indicating a stroke risk of 7% to 10% approximately. HAS-BLED score is 4, indicating 8.9% risk of bleed. He is relatively protected on dual-antiplatelet therapy plus enoxaparin at present. Prophylaxis. Continue enoxaparin as he has dense hemiparesis. Unless his mobility improves, he likely will need DVT prophylaxis for as long as 6 weeks or more. DISPOSITION: Attended staffing, 15 min, 03/31/2019. Discussed with case management, dietitian, nursing, PT, OT, ROAD WORKER. Has made minimal progress. Planning discharge to group home facility.. Followup. His primary care provider is Dr. Poncho Alejandro. He should consider a Cardiology followup as an outpatient for long-term rhythm monitoring to rule out atrial fibrillation. Per hospital discharge summary, Cardiology's recommendation was to consider resuming anticoagulation 2 weeks after occurrence of a stroke, which was 03/10/2019. 03/31/19 12:39 Subjective: Feels sleepy. Otherwise without complaints. Not in pain, no fevers or chills, no cough or dyspnea. Staff has noticed somnolence today yesterday. Reportedly he had a poor night of sleep 2 nights ago. Objective: Vital Signs Temp Pulse Resp BP Pulse Ox 36.9 C 65 18 130/69 H 92 03/31/19 08:00 03/31/19 12:29 03/31/19 08:00 03/31/19 12:29 03/31/19 08:00 Laboratory Results 03/22/19 05:17 03/22/19 05:17 03/30/19 03/31/19 04/01/19 05:59 05:59 05:59 Intake Total 960 550 280 Output Total 400 200 500 Balance 560 350 -220 Physical Exam - Physical Exam General Appearance: WD/WN, alert, no apparent distress Respiratory: normal breath sounds, No crackles, No rhonchi, No wheezing Cardiac/Chest: regular rate, rhythm, No edema, No JVD, No diastolic murmur, No systolic murmur Skin: normal color, warm/dry Neuro/Psych: alert, normal mood/affect, oriented x 3, motor weakness (Right upper and lower extremity. Increased tone right upper extremity.), cognition abnormalities (Sleepy, easily awakened.) ICD10 Worksheet Patient Problems: Problems Problem Status Onset CVA (cerebral vascular accident) Acute Syncope Acute
[2019-03-31] MEDS: ONDANSETRON DISINTEGRATING 4 MG TAB PO PRN (13:19)
[2019-03-31] MEDS: ENOXAPARIN 40 MG/0.4 ML SYR SC SCH (15:46)
[2019-03-31] MEDS: BISACODYL 10 MG SUPP PR PRN (15:48)
[2019-03-31] MEDS: MAGNESIUM HYDROXIDE 30 ML UDCUP PO PRN (16:20)
[2019-03-31] MEDS: ATORVASTATIN CALCIUM 40 MG TAB PO SCH (17:42)
[2019-03-31] MEDS: MELATONIN 3 MG TAB PO SCH (21:26)
[2019-04-01] MEDS: POLYETHYLENE GLYCOL 3350 17 GM PKT PO SCH (08:36)
[2019-04-01] MEDS: CLOPIDOGREL BISULFATE 75 MG TAB PO SCH (08:37)
[2019-04-01] MEDS: ASPIRIN 81 MG CHEWABLE TAB PO SCH (08:37)
[2019-04-01] MEDS: TAMSULOSIN HCL 0.4 MG CAP PO SCH (08:38)
[2019-04-01] MEDS: SENNOSIDES 1 TAB PO SCH ×2 (08:38→20:05)
--- NOTE | 2019-04-01 11:15 | SOAPPROG ---
SOAP Progress Note Assessment/Plan: Assessment: Cerebrovascular accident, posterior left internal capsule, with dense right hemiparesis. * Initial functional independence measure is 33 on 03/24/2019, decline to 32 as of 03/31/2019. Bed mobility required moderate assist of 2. Transfers with a Mai Stedy required moderate assist of 2. Lower body dressing supine in bed required maximal assist. Upper body dressing required maximal assist. Decreased initiation noted. Transferred with OT using sliding board and was noted to be impulsive and perseverative, requiring moderate to maximal assist. * OT reported increased tone left upper and lower extremities, 03/28/2019. Started low-dose baclofen at 5 mg twice daily with breakfast and dinner. With somnolence x2 days, will discontinue baclofen starting evening of 03/31/2019. * Continue PT and OT to optimize mobility and activities of daily living toward the minimal to moderate assist level from wheelchair. Aphasia and cognitive impairment, with a history of dementia. * Significant impairment of memory including working and remote memory. Global cognitive impairment. * Phonemic > semantic paraphaias in his speech. Content is quite scant. Pt requires cues to facilitate expression of his intent and message. 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 Dysphagia. * Advanced to dysphagia 3 diet with thin liquids. 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 Episodes of unresponsiveness. Head CT and CT angiography 03/27/2019 with no changes. Labs are normal. Curbside discussion with neurologist right possibility of sleep attacks; symptomatology is not consistent with seizures. * Initiated modafinil 50 mg q.day on 03/28/2019. Continue to monitor. * Has had anorexia and somnoplence not improved. Had impaired sleep 03/29/2019. D/C'd modafinil 03/31/2019. Secondary prevention of cerebrovascular accident. Continue aspirin, clopidogrel , blood pressure control, and control of dyslipidemia. * Initiated SSRI high for depressed mood as well as neurologic recovery, 2018, with escitalopram 10 mg q.day. Discontinued when modafinil was initiated , 03/28/2019. Hypertension. Previously on amlodipine and isosorbide, currently on no medications. Blood pressure is borderline elevated for secondary prevention, though sometimes is below threshold. Recent syncopal episode was associated with very low blood pressure and systolic of 60. Continue to monitor. Consider resumption of amlodipine. Dyslipidemia. Continue atorvastatin. History of encephalopathy. Continue melatonin. D/c p.r.n. quetiapine 04/01/2019 as it has not been used since 03/23/2019.. Constipation. Scheduled senna starting 03/24/2019. Had bisacodyl suppository with good result. * Schedule polyethylene glycol starting 03/27/2019. Continue to monitor. Benign prostatic hyperplasia and urinary incontinence. Continue tamsulosin. He had bladder scanning in the hospital with a postvoid residual of 31 mL. * Has had high residuals on the rehabilitation unit but well below the threshold for catheterization. Urinary tract infection with encephalopathy. He has been clearing. Treated with cephalexin for a total of 7 days of antibiotic treatment, through 2018. Coronary artery disease. Will benefit from the same secondary prevention as CVA. History of atrial fibrillation. No dysrhythmia has been noted at [facility] or throughout his stay at [facility]. * Discussed with primary care office, 03/26/2019. Anticoagulation was discontinued a during a prior stay at [facility] in January of 2019. Will get records from that stay. * Status post CVA his CHADS2-VASc score is 5, indicating a stroke risk of 7% to 10% approximately. HAS-BLED score is 4, indicating 8.9% risk of bleed. He is relatively protected on dual-antiplatelet therapy plus enoxaparin at present. He fell out of his wheelchairn 03/29 or 03/30/2019. Risk of bleed with full anticoagulation plus dual antiplatemet agensts likely exceeds risk of CVA. Prophylaxis. Continue enoxaparin as he has dense hemiparesis. Unless his mobility improves, he likely will need DVT prophylaxis for as long as 6 weeks or more. DISPOSITION: Attended staffing, 15 min, 03/31/2019. Discussed with case management, dietitian, nursing, PT, OT, LOCAL COMBINATION TRUCK DRIVER. Has made minimal progress. Planning discharge to care home facility.. Followup. His primary care provider is Dr. Poncho Alejandro. He should consider a Cardiology followup as an outpatient for long-term rhythm monitoring to rule out atrial fibrillation. Per hospital discharge summary, Cardiology's recommendation was to consider resuming anticoagulation 2 weeks after occurrence of a stroke, which was 03/10/2019. 04/01/19 11:11 Subjective: No complaints. Large bowel movement yesterday. Not in pain, no cough or dyspnea, no fevers or chills. Objective: Vital Signs Temp Pulse Resp BP Pulse Ox 36.8 C 63 15 108/59 L 90 L 04/01/19 05:43 04/01/19 05:43 04/01/19 05:43 04/01/19 05:43 04/01/19 05:43 Laboratory Results 03/22/19 05:17 03/22/19 05:17 03/31/19 04/01/19 04/02/19 05:59 05:59 05:59 Intake Total 550 450 500 Output Total 200 500 Balance 350 -50 500 Physical Exam - Physical Exam General Appearance: WD/WN, alert, no apparent distress Respiratory: normal breath sounds, No crackles, No rhonchi, No wheezing Cardiac/Chest: regular rate, rhythm, No edema, No JVD, No diastolic murmur, No systolic murmur Skin: normal color, warm/dry Neuro/Psych: alert, normal mood/affect, motor weakness (Left hemiparesis) ICD10 Worksheet Patient Problems: Problems Problem Status Onset CVA (cerebral vascular accident) Acute Syncope Acute
[2019-04-01] MEDS: ENOXAPARIN 40 MG/0.4 ML SYR SC SCH (16:39)
[2019-04-01] MEDS: ATORVASTATIN CALCIUM 40 MG TAB PO SCH (17:36)
[2019-04-01] MEDS: MELATONIN 3 MG TAB PO SCH (23:55)
[2019-04-02 05:22] VITALS: BP 118/61
[2019-04-02] MEDS: SENNOSIDES 1 TAB PO SCH (08:09)
[2019-04-02] MEDS: TAMSULOSIN HCL 0.4 MG CAP PO SCH (08:09)
[2019-04-02] MEDS: POLYETHYLENE GLYCOL 3350 17 GM PKT PO SCH (08:09)
[2019-04-02] MEDS: ASPIRIN 81 MG CHEWABLE TAB PO SCH (08:09)
[2019-04-02] MEDS: CLOPIDOGREL BISULFATE 75 MG TAB PO SCH (08:09)
--- NOTE | 2019-04-02 13:15 | GDS ---
[f rep st] DISCHARGE SUMMARY DISCHARGE DIAGNOSIS: Cerebrovascular accident. DISCHARGE DIAGNOSIS: Cerebrovascular accident. OTHER DISCHARGE DIAGNOSES: 1. Episodes of unresponsiveness. 2. Hypertension. 3. Dyslipidemia. 4. BPH and urinary incontinence. 5. Urinary tract infection. 6. History of atrial fibrillation and coronary artery disease. CONSULTATIONS: There were none. PROCEDURES: There were none. COMPLICATIONS: There were none. HISTORY AND HOSPITAL COURSE: This patient was readmitted to inpatient rehabilitation on 03/21/2019. His initial rehabilitation admission was on 03/14, and was interrupted by an episode of unresponsiveness and evaluation for syncope, for which he was hospitalized. He was readmitted on 03/21/2019. Please see the previous medical record for information regarding that hospitalization. He was readmitted to inpatient rehabilitation for continued treatment of debility after a cerebrovascular accident. He had dense right hemiparesis, dysphagia and cognitive impairment. He was dependent for mobility-related activities of daily living and he had significant cognitive impairment, as well as dysphagia. He made little progress in rehabilitation. He required moderate assist of 2 for bed mobility. Transfers were done with a Mai-Steady with moderate assist of 2. Lower body dressing was done supine in bed and required maximal assist. Upper body dressing required maximal assist. He had decreased initiation. He had aphasia, cognitive impairment and dysphagia. He was seen by speech and language pathology. He was found to have significant impairment of memory including working and remote memory, and global cognitive impairment. He had paraphasias in his speech and scant speech content. Regarding dysphagia, he was able to be advanced to a dysphagia 3 diet with thin liquids. During his stay, he had further episodes of unresponsiveness. Head CT and CT angiography were repeated on 03/27/2019, showing no changes to his prior findings of stroke. Condition was discussed with the neurologist, who raised the possibility of sleep attacks, which can happen in a previously demented person status post CVA. He had a trial of modafinil 50 mg a day starting on , to improve alertness. However, he had anorexia and his somnolence was not improved. Sleep was impaired on 03/29/2019. Modafinil was discontinued on 03/30/2019. He had a history of hypertension and was previously treated with amlodipine and isosorbide. He was not on any antihypertensives when he came to the inpatient rehabilitation unit, partly due to his possible syncopal episode, which prompted his rehospitalization. At that time, had a systolic of 60. In the 2 days before discharge, his blood pressure ranged from 108/59 to 125/61. There is a history of encephalopathy. He had been prescribed quetiapine during his acute hospitalization. It had not been used since 03/23/2019, and was discontinued during his rehabilitation stay. He had urinary incontinence and history of benign prostatic hyperplasia. He was continued on tamsulosin. He was diagnosed with a urinary tract infection and treated with 7 days of cephalexin, through 03/26/2019. He had a history of atrial fibrillation. He had been taking a direct oral anticoagulant, but it had been discontinued during his stay at [facility] for syncope in January of 2019. Atrial fibrillation may have caused his stroke. However, there were no dysrhythmias seen on monitoring while in the hospital. Chart notes were obtained from his January 2019, [facility] hospitalization. At that time, the providers could not determine an etiology for the direct oral anticoagulant and since he had a fall with a syncopal episode, it was not continued. There was a fall during his stay in inpatient rehabilitation with no injury noted. His CHADS2-VASc score was 5, indicating stroke risk of 7% to 10% per year. The HAS-BLED score was 4 indicating an 8.9% risk of bleed. He was maintained on dual antiplatelet therapy plus enoxaparin as DVT prophylaxis during his stay. Risk of bleed versus risk of repeat CVA were seen to be approximately equal. He should have followup with primary care, as well as Cardiology to reassess indications and risks of anticoagulation. DISCHARGE PLAN: Disposition is to a [facility] facility. CONDITION: Fair. ACTIVITY: Ad ravi, but he needs assistance with all mobility-related activities of daily living. CODE STATUS: He is DNR. ALLERGIES: There are no known drug allergies. DIET: Dysphagia 3 with thin liquids. MEDICATIONS ON DISCHARGE: 1. Acetaminophen 650 mg p.o. q.4 hours p.r.n. 2. Aspirin 81 mg p.o. daily. 3. Atorvastatin 40 mg p.o. daily at 1800. 4. Clopidogrel 75 mg p.o. daily. 5. Enoxaparin 40 mg subcutaneous daily, which should continue for a total of 6 weeks, which would be through mid April ,or until his mobility significantly increases. 6. Milk of magnesia 30 mL p.o. daily p.r.n. 7. Melatonin 6 mg p.o. at bedtime. 8. Ondansetron 4 mg p.o. q.6 hours p.r.n. 9. Polyethylene glycol 17 g p.o. daily. 10. Senna 8.8 mg p.o. b.i.d. p.r.n. 11. Tamsulosin 0.4 mg p.o. daily. ISSUES TO BE ADDRESSED AT FOLLOWUP: 1. Mobility and activities of daily living, cognition and swallowing. 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 2. History of atrial fibrillation, with risks of bleeding versus cerebrovascular accident risk as discussed above. Follow up with Primary Care and Cardiology to assist in decisionmaking. Copy requested to: [facility] /[id number]/MODL MTDD
== END 2019-04-02 11:15 | DRG 57 ==
LOC: F3E 03-21 13:38 → UNDODISIN 03-27 13:07
PROVIDERS: ADMIT Internal Medicine Hospice and Palliative Medicine; ATTEND Internal Medicine Hospice and Palliative Medicine
DX: I69.351 Hemiplegia and hemiparesis following cerebral infarction affecting right dominant side (principal); I69.320 Aphasia following cerebral infarction; I69.310 Attention and concentration deficit following cerebral infarction; I69.311 Memory deficit following cerebral infarction; I69.313 Psychomotor deficit following cerebral infarction; G81.91 Hemiplegia, unspecified affecting right dominant side; R41.4 Neurologic neglect syndrome; N39.0 Urinary tract infection, site not specified; I27.20 Pulmonary hypertension, unspecified; I25.10 Atherosclerotic heart disease of native coronary artery without angina pectoris; F03.90 Unspecified dementia, unspecified severity, without behavioral disturbance, psychotic disturbance, mood disturbance, and anxiety; E78.5 Hyperlipidemia, unspecified; R01.1 Cardiac murmur, unspecified; G47.30 Sleep apnea, unspecified; D69.6 Thrombocytopenia, unspecified; K59.00 Constipation, unspecified; N40.1 Benign prostatic hyperplasia with lower urinary tract symptoms; Z95.1 Presence of aortocoronary bypass graft; Z66 Do not resuscitate; R32 Unspecified urinary incontinence
CPT/HCPCS: 92507-GN; 92523-GN; 92526-GN; 92610-GN; 97110-GO; 97110-GP; 97112-GO; 97112-GP; 97162-GP; 97166-GO; 97167-GO; 97530-GO; 97530-GP; 97535-GO; 97542-GP; J1650

== ENCOUNTER 2019-03-27 12:55 | Emergency (ER) | payer OTHER, MEDICARE ==
--- NOTE | 2019-03-27 13:16 | EDPHY ---
HPI/HX/ROS/PE/MDM Narrative: CHIEF COMPLAINT: Stroke alert HPI: The patient is an 83-year-old male who arrives as a Stroke Alert from the inpatient rehab unit where he is an inpatient. Just prior to arrival in the ED , the rehab physician, Dr. Alves, noted an acute change in the patient's mental status - he was no longer responsive or speaking, whereas before his baseline was verbal but persistent right-sided hemiaparesis. There has been no recent fall or injury. BGL at time of stroke alert was apparently normal. CT non -con was ordered prior to my involvement in the case. REVIEW OF SYSTEMS: Aside from elements discussed in the HPI, a comprehensive 10-point review of systems was reviewed and is negative. PMH:Per records, CVA on 03/10. Patient currently on Lovenox. SOCIAL HISTORY: Currently residing in rehab unit. Full code. Further history unobtainable. PHYSICAL EXAM: General:Patient is awake, breathing but minimally responsive. ENT:Eyes are normal to inspection. ENT inspection normal. Airway patent. Neck: Normal inspection. Full range of motion. Respiratory:No respiratory distress. Breath sounds normal bilaterally. Cardiovascular: Regular rate and rhythm. Strong peripheral pulses. Normal cap refill. Abdomen:The abdomen is nontender to palpation. There are no peritoneal signs. There are normal bowel sounds. Back: Normal to inspection. No tenderness to palpation. Skin: Normal color. No rash. Warm and dry. Extremities: Normal appearance. Full range of motion. Neuro: Right-sided weakness noted. Patient minimally responsive to voice, will make eye contact with me and attempt to speak. ED Course: EKG reveals normal sinus rhythm with no acute ST changes. Noncontrast head CT called to me by Dr. Barron at 1:30 p.m. As negative for acute abnormality. On re-evaluation at 1430, the patient is now back to baseline. He is talking, sitting up and has no complaints. He does not remember what happened. I spoke to Dr. Alves from Rehab and asked if patient should be admitted to hospitalist service or back to rehab and he wants to readmit to rehab. - Data Points Imaging Results: Imaging Impressions Head CTA 03/27/19 13:01 Impression: Normal CT angiogram of the head and neck. Stenoses are calculated using [place] Symptomatic Carotid Endarterectomy Trial (NASCET) criteria. Findings and recommendations discussed with Vinnie Campbell MD at 1413 hour, 03/27/2019. Neck CTA 03/27/19 13:01 Impression: Normal CT angiogram of the head and neck. Stenoses are calculated using [place] Symptomatic Carotid Endarterectomy Trial (NASCET) criteria. Findings and recommendations discussed with Vinnie Campbell MD at 1413 hour, 03/27/2019. Laboratory Results: Laboratory Results 03/27/19 13:10 03/27/19 13:10 03/27/19 03/27/19 03/27/19 13:17 13:16 13:10 WBC RBC Hgb POC Hgb 16.0 gm/dL gm/dL (13.7-17.5) Hct POC Hct 47 % % (40-51) MCV MCH MCHC RDW Plt Count MPV Neut % (Auto) Lymph % (Auto) Christian % (Auto) Eos % (Auto) Baso % (Auto) Nucleat RBC Rel Count Absolute Neuts (auto) Absolute Lymphs (auto) Absolute Monos (auto) Absolute Eos (auto) Absolute Basos (auto) Absolute Nucleated RBC Immature Gran % Immature Gran # POC Sodium 141 mEq/L mEq/L (135-145) Sodium 137 mEq/L mEq/L (135-145) POC Potassium 4.0 mEq/L mEq/L (3.3-5.0) Potassium 4.3 mEq/L mEq/L (3.5-5.2) POC Chloride 103 mEq/L mEq/L (97-110) Chloride 103 mEq/L mEq/L (97-110) Carbon Dioxide 26 mEq/l mEq/l (22-31) POC Total CO2 28 mEq/L mEq/L (22-31) Anion Gap 8 mEq/L mEq/L (6-14) POC BUN 18 mg/dL mg/dL (7-23) BUN 18 mg/dL mg/dL (7-23) Creatinine 0.8 mg/dL mg/dL (0.7-1.3) POC Creatinine 0.9 mg/dL mg/dL (0.7-1.3) Estimated GFR > 60 Glucose 97 mg/dL mg/dL (70-100) POC Glucose 100 mg/dL mg/dL (70-100) Calcium 9.8 mg/dL mg/dL (8.5-10.4) POC Troponin I 0.08 ng/mL ng/mL (0.00-0.08) 03/27/19 13:10 WBC 6.21 10^3/uL 10^3/uL (3.80-9.50) RBC 4.90 10^6/uL 10^6/uL (4.40-6.38) Hgb 15.3 g/dL g/dL (13.7-17.5) POC Hgb Hct 45.3 % % (40.0-51.0) POC Hct MCV 92.4 fL fL (81.5-99.8) MCH 31.2 pg pg (27.9-34.1) MCHC 33.8 g/dL g/dL (32.4-36.7) RDW 12.3 % % (11.5-15.2) Plt Count 244 10^3/uL 10^3/uL (150-400) MPV 10.2 fL fL (8.7-11.7) Neut % (Auto) 67.0 % % (39.3-74.2) Lymph % (Auto) 21.6 % % (15.0-45.0) Christian % (Auto) 8.5 % % (4.5-13.0) Eos % (Auto) 1.1 % % (0.6-7.6) Baso % (Auto) 0.8 % % (0.3-1.7) Nucleat RBC Rel Count 0.0 % % (0.0-0.2) Absolute Neuts (auto) 4.16 10^3/uL 10^3/uL (1.70-6.50) Absolute Lymphs (auto) 1.34 10^3/uL 10^3/uL (1.00-3.00) Absolute Monos (auto) 0.53 10^3/uL 10^3/uL (0.30-0.80) Absolute Eos (auto) 0.07 10^3/uL 10^3/uL (0.03-0.40) Absolute Basos (auto) 0.05 10^3/uL 10^3/uL (0.02-0.10) Absolute Nucleated RBC 0.00 10^3/uL 10^3/uL (0-0.01) Immature Gran % 1.0 % % (0.0-1.1) Immature Gran # 0.06 10^3/uL 10^3/uL (0.00-0.10) POC Sodium Sodium POC Potassium Potassium POC Chloride Chloride Carbon Dioxide POC Total CO2 Anion Gap POC BUN BUN Creatinine POC Creatinine Estimated GFR Glucose POC Glucose Calcium POC Troponin I Point of Care Test Results: Chemistry 03/27/19 03/27/19 13:17 13:16 POC Sodium 141 mEq/L mEq/L (135-145) POC Potassium 4.0 mEq/L mEq/L (3.3-5.0) POC Chloride 103 mEq/L mEq/L (97-110) POC Total CO2 28 mEq/L mEq/L (22-31) POC BUN 18 mg/dL mg/dL (7-23) POC Creatinine 0.9 mg/dL mg/dL (0.7-1.3) POC Glucose 100 mg/dL mg/dL (70-100) POC Troponin I 0.08 ng/mL ng/mL (0.00-0.08) ISTAT H&H 03/27/19 13:17 POC Hgb 16.0 gm/dL gm/dL (13.7-17.5) POC Hct 47 % % (40-51) General Time Seen by Provider: 03/27/19 13:00 Initial Vital Signs: Initial Vital Signs Temperature (C) 36.7 C 03/27/19 13:07 Heart Rate 67 03/27/19 13:07 Respiratory Rate 14 03/27/19 13:07 Blood Pressure 146/79 H 03/27/19 13:07 O2 Sat (%) 93 03/27/19 13:07 O2 Delivery Mode Room Air Allergies/Adverse Reactions: No Known Allergies Allergy (Verified 03/27/19 13:07) Home Medications: Medication Instructions Recorded Acetaminophen [Tylenol 325mg (*)] 650 mg PO Q4 PRN 03/14/19 Atorvastatin Calcium [Lipitor 40 40 mg PO DAILY@1800 03/14/19 mg (*)] Clopidogrel Bisulfate [Clopidogrel] 75 mg PO DAILY 03/14/19 Enoxaparin [Lovenox 40 MG (*)] 40 mg SQ DAILY@1600 03/14/19 Magnesium Hydroxide [Milk of 30 ml PO DAILY PRN 03/16/19 Magnesia] Polyethylene Glycol 3350 [Miralax 17 gm PO DAILY PRN 03/16/19 17 gm (*)] Sennosides [Senna] 8.8 mg PO BID PRN 03/16/19 Tamsulosin HCl [Flomax 0.4 MG (*)] 0.4 mg PO DAILY 03/16/19 Aspirin [Aspirin 81mg (*)] 81 mg PO DAILY #30 tab 03/19/19 Melatonin [Melatonin 3 MG (*)] 6 mg PO HS tab 03/19/19 QUEtiapine FUMARATE [Seroquel 25 25 mg PO BID PRN #30 tab 03/19/19 mg (*)] Cephalexin [Keflex (*)] 500 mg PO BID 3 Days #6 cap 03/21/19 Departure - Departure Clinical Impression: Altered mental status Condition: Fair Referrals: Poncho Alejandro MD [Primary Care Provider] - As per Instructions
[2019-03-27 13:24] LABS: PLATELET COUNT 244 10^3/uL (150-400)
[2019-03-27] MEDS ORDERED: IOPAMIDOL (ISOVUE 370) 100 ML BTL IV ONE (13:39)
[2019-03-27 15:06] VITALS: BP 141/88
--- NOTE | 2019-03-27 15:16 | CPEKG ---
Test Reason : OPEN Blood Pressure : / mmHG Vent. Rate : 065 BPM Atrial Rate : 069 BPM P-R Int : 059 ms QRS Dur : 128 ms QT Int : 475 ms P-R-T Axes : 034 -60 101 degrees QTc Int : 494 ms AV block, complete (third degree) Left bundle branch block Confirmed by Vinnie Campbell ([id number]) on 03/27/2019 3:15:37 PM Referred By: Vinnie Campbell Confirmed By:Vinnie Campbell
== END 2019-03-27 15:06 | disposition still patient (30) ==
DX: R41.82 Altered mental status, unspecified (principal)
CPT/HCPCS: 70496; 70498; 93005; 99285; Q9967; 82435-PO; 82565-PO; 82947-PO; 84132-PO; 84295-PO; 84484-ER; 84520-PO; 85014-ER

== ENCOUNTER 2019-04-03 10:32 | Emergency (ER) | payer OTHER, MEDICARE ==
[2019-04-03 10:51] LABS: PLATELET COUNT 260 10^3/uL (150-400)
--- NOTE | 2019-04-03 10:51 | EDPHY ---
H & P Time Seen by Provider: 04/03/19 10:48 HPI/ROS: CHIEF COMPLAINT: Patient makes no complaints HISTORY OF PRESENT ILLNESS: This is an 83-year-old male who was transferred from [facility] because of frequent falling. He was admitted to that facility yesterday and has fallen twice since then. He does take anticoagulants and today he struck his head. He has a history of left- sided CVA with right-sided weakness, 03/10/19. At the time of his stroke he was initially evaluated at [facility] where he was found not to be a candidate for tPA. He was subsequently transferred to rehab at [facility]. During his rehabilitation stay at [facility] he had 2 episodes during which he had decreased responsiveness. One was on March 16 at which time he was noted to be hypotensive with decreased responsiveness. The other was on March 27 when he was seen in the emergency department as a stroke alert, underwent CT of the head and CT angiogram of the head and neck, and was able to return to rehab with no lasting change in his condition. Today he is here because of the falls and because he struck his head. REVIEW OF SYSTEMS: A ten system review of systems was performed and is negative with the exception of the items mentioned in the HPI. Past medical history: 1. CVA 2. CAD 3. Dementia 4. Hyperlipidemia 5. Sleep apnea 6. Thrombocytopenia Past surgical history: CABG Social history: . Nonsmoker. Currently residing at [facility]. General Appearance: Alert. Vital signs reviewed. 120/92. Head: Right forehead cephalohematoma. No palpable skull fracture. Eyes: Pupils equal and round, no conjunctival injection, no discharge. Anicteric. ENT, Mouth: Mucous membranes are moist, no oropharyngeal erythema or edema. Neck: No lymphadenopathy, supple. Respiratory: Lungs are clear to auscultation; no wheezes, rales, or rhonchi. Cardiovascular: Regular rate and rhythm; no murmur heard, rub, or gallop. Gastrointestinal: Abdomen is soft and nontender, no masses or organomegaly, bowel sounds normal. Skin: Warm and dry, no rashes on exposed skin, normal color. Scattered right upper extremity bruises of varying age. Back: Nontender to palpation over the thoracolumbar spine. No CVAT. Extremities: No lower extremity edema, no calf tenderness or swelling. No long bone tenderness or deformities. Neurological: Alert and oriented. Moving all four extremities easily and equally. Dense right hemiplegia. Moving LUE and LLE spontaneously. PERRL. Psychiatric: Normal affect. - Medical/Surgical History Hx Asthma: No Hx Chronic Respiratory Disease: Yes Hx Diabetes: No Hx Cardiac Disease: Yes Hx Renal Disease: No Hx Cirrhosis: No Hx Alcoholism: No Hx HIV/AIDS: No Hx Splenectomy or Spleen Trauma: No Other PMH: dementia, CABG 1982, HTN, hyperlipidemia, SOFIA, PE, L MCA CVA, syncope , thrombocytopenia, - Social History Smoking Status: Never smoked Constitutional: Initial Vital Signs Temperature (C) 36.7 C 04/03/19 10:32 Heart Rate 56 L 04/03/19 10:32 Respiratory Rate 16 04/03/19 10:32 Blood Pressure 120/92 H 04/03/19 10:32 O2 Sat (%) 95 04/03/19 10:32 O2 Delivery Mode Room Air Allergies/Adverse Reactions: No Known Allergies Allergy (Verified 03/27/19 13:07) Home Medications: Medication Instructions Recorded Acetaminophen [Tylenol 325mg (*)] 650 mg PO Q4 PRN 03/14/19 Atorvastatin Calcium [Lipitor 40 40 mg PO DAILY@1800 03/14/19 mg (*)] Clopidogrel Bisulfate [Clopidogrel] 75 mg PO DAILY 03/14/19 Enoxaparin [Lovenox 40 MG (*)] 40 mg SQ DAILY@1600 03/14/19 Magnesium Hydroxide [Milk of 30 ml PO DAILY PRN 03/16/19 Magnesia] Polyethylene Glycol 3350 [Miralax 17 gm PO DAILY PRN 03/16/19 17 gm (*)] Sennosides [Senna] 8.8 mg PO BID PRN 03/16/19 Tamsulosin HCl [Flomax 0.4 MG (*)] 0.4 mg PO DAILY 03/16/19 Aspirin [Aspirin 81mg (*)] 81 mg PO DAILY #30 tab 03/19/19 Melatonin [Melatonin 3 MG (*)] 6 mg PO HS tab 03/19/19 Ondansetron Odt [Zofran Odt 4 mg 4 mg PO Q6H PRN tab 04/02/19 (*)] Medical Decision Making ED Course/Re-evaluation: CT of head obtained because of falls, anticoagulants. No acute intracranial hemorrhage. Prior CVA visualized. See formal radiology report. Arrangements made for patient to return to [facility]. No intracranial or extremity injuries found secondary to recent falls. Right frontal cephalohematoma and bruises on right arm noted. No fractures, dislocations. No lacerations. - Data Points Laboratory Results: Laboratory Results 04/03/19 10:30 04/03/19 10:30 Departure - Departure Disposition: Home, Routine, Self-Care Clinical Impression: Fall Qualifiers: Encounter type: initial encounter Qualified Code(s): W19.XXXA - Unspecified fall, initial encounter Condition: Good Instructions: Fall Prevention (ED) Additional Instructions: CT scan of the brain today does not show any evidence of stroke progression or acute bleeding. There is no skull fracture. Blood work is unremarkable except for a blood glucose of 180. CBC and chemistries were checked. I have not found anything to explain an increase in falling. I have not found any evidence of acute injury related to falls, aside from skin bruises. Referrals: Luis Alves MD [Medical Doctor] - As per Instructions
[2019-04-03 13:56] VITALS: BP 150/64
== END 2019-04-03 14:02 | disposition home or self-care (01) ==
LOC: EDUNIT# → SUPCPDRO 10:32
DX: S09.90XA Unspecified injury of head, initial encounter (principal); I10 Essential (primary) hypertension; E78.5 Hyperlipidemia, unspecified; I25.10 Atherosclerotic heart disease of native coronary artery without angina pectoris; F03.90 Unspecified dementia, unspecified severity, without behavioral disturbance, psychotic disturbance, mood disturbance, and anxiety; W19.XXXA Unspecified fall, initial encounter; Z86.73 Personal history of transient ischemic attack (TIA), and cerebral infarction without residual deficits; Z95.1 Presence of aortocoronary bypass graft